=== PATIENT | female | born 2005 | race Caucasian/White ===

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

== ENCOUNTER 2024-03-28 10:48 | Outpatient (CLI) | payer MEDICAID, SELFPAY ==
[2024-03-28 11:40] LABS: Hematocrit 33.1 % (37.0-47.0); Hemoglobin 10.9 g/dL (12.0-15.0); Mean Corpuscular HGB Conc 32.9 g/dl (32-36); Mean Corpuscular Hemoglobin 30.5 pg (26-34); Mean Corpuscular Volume 92.7 fl (80-100); Mean Platelet Volume 10.6 fl (7.4-10.4); Platelet Count Result 267 k/mm3 (150-375); Red Blood Count 3.57 M/mm3 (4.2-5.4); Red Cell Distribution Width 12.2 % (11.5-14.5); White Blood Count 9.9 K/mm3 (4.5-10.0)
--- OUTSIDE RECORDS SUMMARY | 2024-03-28 11:55 | XMS_ITS | Clinical Summary ---
Author Organization [facility] Address [address] [place] [address] Care Team Providers Care Patch Press Operator Name Role Phone Xavier Gerber MD Primary Care Provider [phone] Allergies No known active allergies Active Problems Problem Noted Date Diagnosed Date Amblyopia of right eye 01/07/2021 Immunizations Name Administration Dates Next Due Influenza, Quadrivalent, Spl it, Preservative Free, Intramuscular 01/07/2021 Family History Medical History Relation Name Comments ADD / ADHD Brother Depression Brother Seizures Mother Stroke Mother Relation Name Status Comments Brother hit and run Mother Social History Tobacco Use Types Packs/Day Years Used Date Smoking Tobacco: Unknown Personal Safety Answer Date Recorded Have you ever been in or are you currently in a harmful physical or emotional relationship or is someone making you feel afraid or unsafe? Denies 04/05/2023 Comments Unknown Sex and Gender Information Value Date Recorded Sex Assigned at Not on file Legal Sex Female 6:44 AM INSTRUMENTATION INSTRUCTOR Gender Identity Not on file Sexual Orientation Not on file Obstetrics History Growth Chart Information Age Height Weight Axxhef-rtg-[id number] th Percentile BMI Percentile Head Circum Head Circum Percentile Date 17 years 152.4 cm (5') 54.4 kg (120 lb) 71.29%* 2023 15 years 155 cm (5' 1.02 ) 48.2 kg (106 lb 4.2 oz) 43.33%* 2020 15 years 149.9 cm (4' 11 ) 47.3 kg (104 lb 4.4 oz) 56.99%* 2020 * [facility] (Girls, 2-20 Years) Last Filed Vital Signs Vital Sign Reading Time Taken Comments Blood Pressure 115/89 04/05/2023 8:01 PM INSTRUMENTATION INSTRUCTOR Pulse 108 04/05/2023 8:01 PM INSTRUMENTATION INSTRUCTOR Temperature 36.9 ??C (98.4 ??F) 04/05/2023 4:02 PM CS T Respiratory Rate 18 04/05/2023 8:01 PM INSTRUMENTATION INSTRUCTOR Oxygen Saturation 100% 04/05/2023 8:01 PM INSTRUMENTATION INSTRUCTOR Inhaled Oxygen Concentration - - Weight 54.4 kg (120 lb) 04/05/2023 3:59 PM INSTRUMENTATION INSTRUCTOR Height 152.4 cm (5') 04/05/2023 3:59 PM INSTRUMENTATION INSTRUCTOR Body Mass Index 23.44 04/05/2023 3:59 PM INSTRUMENTATION INSTRUCTOR Body Mass Index Percentile 71.29% 04/05/2023 3:5 9 PM INSTRUMENTATION INSTRUCTOR Growth Chart: CDC (Girls, 2- 20 Years) Plan of Treatment Health Maintenance Due Date Last Done Comments Depression Screening 2004 Hepatitis C Screening 2004 Meningococcal B Vaccine (2 of 2 - Risk Bexsero 2-dose series) 03/12/2022 02/12/2022 Regular Well Visit/Exam 18-64 2022 Covid-19 Vaccine ( season) 2023 12/10/2020, 10/31/2020 Influenza Vaccine (#1) 2023 , 01/07/2021, 05/03/2020, Additional history exists DTaP/Tdap/Td Vaccine (6 - Td or Tdap) 10/23/2026 10/23/2016, 10/23/2010, 11/27/2009, Additional history exists Pneumococcal vaccine <65 Aged Out 006, 09/05/2005, 03/31/2005 No longer eligible based on patient's age to complete this topic Varicella Vaccines Completed 10/23/2010, 11/27/2009 HPV Vaccines Completed 10/14/2017, 10/23/2016 Meningococcal Vaccine Completed 02/12/2022, [id number] [place] [id number] [place] [address] [facility] * Guarantor: JONATHON LLAMAS Account Type Relation to Patient Date of Phone Billing Address Personal/Family [address] Care Teams Patch Press Operator Relationship Specialty Start Date End Date Xavier Gerber MD PCP - General Pediatrics 02/18/21
--- OUTSIDE RECORDS SUMMARY | 2024-03-28 11:55 | XMS_ITS ---
Author Organization [facility] Address [address] [place] [address] Care Team Providers Care Test Lead Application Testing Name Role Phone Blanca Boone Primary Care Provider REASON FOR VISIT 3 month f/u Social History Sex Assigned At : Social History Observation Description Sex Assigned At Female Encounters Encounter Location Date Provider Diagnosis [address] [address] 02/03/2023 Blanca Boone Plan Of Treatment No Information Progress Notes * Kelly COLLINSDOB:[birth year] (18 yo F)Acc No.[id number]:02/03/2023 UNLOCKED PROGRESS NOTE Patient:?Kelly COLLINS Provider:?Blanca Boone MSN, RESEARCH SPECIALIST-BC, PM HNP-BC :2005???Age:17 Y???Sex:Female D ate:02/03/2023 Address:[address] [place] [phone] Subjective: * Chief Complaints: * ???1. 3 month f/u. * Medical History:? Objective: * Vitals:? Assessment: Plan: * Treatment: * Recommended Wellness and Pre vention Guidelines: * ?Status ?Alert ?Last Done ?Next Due ?Action Taken ?NONCOMPLIANT ?HIV screening ?- ?02/03/2023 ?- * * Electronic signature of TAURUS Herr, [id number] on 03/28/2024 at 10:14 AM ORDER CONTROL CLERK BLOOD BANK Sign off status: Pending * Provider:?Blanca Boone, MSN , RESEARCH SPECIALIST-BC, PMHNP-BC Date:?02/03/2023 Generated for Ross ramos/Sajan/eTneilsmitting on:?03/28/2024 10:14 AM ORDER CONTROL CLERK BLOOD BANK
--- OUTSIDE RECORDS SUMMARY | 2024-03-28 11:55 | XMS_ITS | Referral Summary ---
Author Organization [facility] Address [address] [place] [address] Care Team Providers Care Hairspring Assembler Name Role Phone Xavier Gerber MD Primary Care Provider [phone] Allergies No known active allergies Active Problems Problem Noted Date Diagnosed Date Amblyopia of right eye 01/07/2021 Immunizations Name Administration Dates Next Due Influenza, Quadrivalent, Spl it, Preservative Free, Intramuscular 01/07/2021 Social History Tobacco Use Types Packs/Day Years [...] on file Legal Sex Female 6:44 AM IMMIGRATION MANAGER Gender Identity Not on file Sexual Orientation Not on file Last Filed Vital Signs Vital Sign Reading Time Taken Comments Blood Pressure 115/89 04/05/2023 8:01 PM IMMIGRATION MANAGER Pulse 108 04/05/2023 8:01 PM IMMIGRATION MANAGER Temperature 36.9 ??C (98.4 ??F) 04/05/2023 4:02 PM CS T Respiratory Rate 18 04/05/2023 8:01 PM IMMIGRATION MANAGER Oxygen Saturation 100% 04/05/2023 8:01 PM IMMIGRATION MANAGER Inhaled Oxygen Concentration - - Weight 54.4 kg (120 lb) 04/05/2023 3:59 PM IMMIGRATION MANAGER Height 152.4 cm (5') 04/05/2023 3:59 PM IMMIGRATION MANAGER Body Mass Index 23.44 04/05/2023 3:59 PM IMMIGRATION MANAGER Body Mass Index Percentile 71.29% 04/05/2023 3:5 9 PM IMMIGRATION MANAGER Growth Chart: CDC (Girls, 2- 20 Years) Plan of Treatment Not on file Insurance [facility] * Guarantor: JONATHON LLAMAS Account Type Relation to Patient Date of Phone Billing Address Personal/Family [place] [id number] [place] [address] Care Teams Hairspring Assembler Relationship Specialty Start Date End Date Xavier Gerber MD PCP - General Pediatrics 02/18/21
[2024-03-28 12:36] LABS: HIV 1/2 Ab P24 Ag Result Negative (Negative); Rapid Plasma Reagin Non-Reactive (NonReactive)
[2024-03-28 12:39] LABS: Hepatitis B Surface Antigen Negative (Negative)
[2024-03-30 04:13] LABS: CMV IgG Antibody <0.60 U/mL; Varicella IgG Antibody 1.41 S/CO
== END 2024-03-28 10:49 | disposition home or self-care (01) ==
LOC: ANHLAB 10:50
PROVIDERS: Visit Provider Student in an Organized Health Care Education/Training Program
DX: N91.2 Amenorrhea, unspecified (principal)
CPT/HCPCS: 36415; 84702; 85027; 86592; 86644; 86703; 86747; 86762; 86787; 86850; 86900; 86901; 87086; 87340; G0432

== ENCOUNTER 2024-04-11 14:27 | Outpatient (CLI) | payer MEDICAID, SELFPAY ==
--- NOTE | ~2024-04-11 | US_ITS ---
EXAMINATION: US OB <= 14 wk fetus add gest, US OB <= 14 weeks fetus DATE: 06/13/16 13:35:00 INDICATION: Encounter for supervision of normal joint during first trimester. TECHNIQUE: Real-time pelvic ultrasound utilizing transabdominal probe was performed. The interpretin g radiologist was not present for the study. COMPARISON: None. FINDINGS: The uterus measures 9.9 x 9.6 x 9.4 cm. Intrauterine gestational single intrauterine chorionic sac co ntaining 2 living fetuses. A partially visualized thin linear echogenic membrane is seen in places be tween the 2 fetuses on the provided images which be consistent with a monochorionic diamniotic pregna ncy. The crown rump length for fetus A in the sac positioned close to the cervix measures 5.5 cm, which co rrelates with an estimated gestational age of 12 weeks and 1 days. heart motion is identified m easuring 159 beats per minute (bpm) by M-mode Doppler. The crown rump length for fetus B in the sac positioned further from the cervix measures 5.8 cm, whic h correlates with an estimated gestational age of 12 weeks and 2 days. heart motion is identifi ed measuring 170 beats per minute (bpm) by M-mode Doppler. The right ovary is not visualized. The left ovary measures 2.8 x 1.8 x 1.6 cm. Vascular flow identifi ed in the left ovary on color Doppler. There is no free fluid in the pelvis. IMPRESSION: 1. Monochorionic twin with 2 living fetuses with thin membrane seen in places favoring ade mniotic . 2. Gestational age by ultrasound of 12 weeks 2 day(s) +/- 1 week and 1 day(s) with ultrasound estima abad date of delivery ([facility]AFAR) of 10/22/2024. Reviewed, dictated and finalized at location A. ISIONING ANALYST IMPRESSION: 1. Monochorionic twin with 2 living fetuses with thin membrane seen in places favoring diamniotic . 2. Gestational age by ultrasound of 12 weeks 2 day(s) +/- 1 week and 1 day(s) with ultrasound estimated date of delivery ([facility]AFAR) of 10/22/2024.
--- OUTSIDE RECORDS SUMMARY | 2024-04-11 13:11 | XMS_ITS ---
Author Organization [facility] Address [address] [place] [address] Care Team Providers Care Tightening Machine Operator Name Role Phone Blanca Boone Primary Care Provider REASON FOR VISIT 3 month f/u Social History Sex Assigned At : Social History Observation Description Sex Assigned At Female Encounters Encounter Location Date Provider Diagnosis [address] [address] 02/03/2023 Blanca Boone Plan Of Treatment No Information Progress Notes * Kelly COLLINSDOB:[birth year] (18 yo F)Acc No.[id number]:02/03/2023 UNLOCKED PROGRESS NOTE Patient: Kelly FU Provider: Marcia Boone, MSN, NEWSAGENT-BC, PMHNP-BC :2005 A ge:17 Y S ex:Female Date:02/03/2023 Address:[address] [place] [phone] Subjective: * Chief Complaints: * 1 . 3 month f/u. * Medical History: Objective: * Vitals: Assessment: Plan: * Treatment: * Recommended Wellness and Pre vention Guidelines: * S tatus A lert L ast Done N ext Due A ction Taken N ONCOMPLIANT H IV screening - 1 04/06/2022 - * * Electronic signature of TAURUS Herr, [id number] on 04/11/2024 at 01:11 PM CLINICAL SOCIOLOGIST Sign off status: Pending * Provider: BRYAN Fernandez, NEWSAGENT-BC, PMHNP-BC Date: 1 04/06/2022 Generated for Ross ramos/Sajan/Micheleitting on: 0 04/11/2024 01:11 PM CLINICAL SOCIOLOGIST
--- OUTSIDE RECORDS SUMMARY | 2024-04-11 13:11 | XMS_ITS | Clinical Summary ---
Author Organization [facility] Address [address] [place] [phone] Care Team Providers Care Crown Pouncer Name Role Phone Xavier Gerber MD Primary Care Provider [phone] Allergies No known active allergies Active Problems [...] on file Legal Sex Female 6:44 AM AUTOCAD ELECTRICAL DESIGNER Gender Identity Not on file Sexual Orientation Not on file Obstetrics History Growth Chart Information Age Height Weight Srkjpt-vrg-aglq th Percentile BMI Percentile Head Circum Head Circum Percentile Date 17 years 152.4 cm (5') 54.4 kg (120 lb) 71.29%* 2023 15 years 155 cm (5' 1.02 ) 48.2 kg (106 lb 4.2 oz) 43.33%* 2020 15 years 149.9 cm (4' 11 ) 47.3 kg (104 lb 4.4 oz) 56.99%* 2020 * CDC (Girls, 2-20 Years) Last Filed Vital Signs Vital Sign Reading Time Taken Comments Blood Pressure 115/89 04/05/2023 8:01 PM AUTOCAD ELECTRICAL DESIGNER Pulse 108 04/05/2023 8:01 PM AUTOCAD ELECTRICAL DESIGNER Temperature 36.9 C (98.4 F) 04/05/2023 4:02 PM AUTOCAD ELECTRICAL DESIGNER Respiratory Rate 18 04/05/2023 8:01 PM AUTOCAD ELECTRICAL DESIGNER Oxygen Saturation 100% 04/05/2023 8:01 PM AUTOCAD ELECTRICAL DESIGNER Inhaled Oxygen Concentration - - Weight 54.4 kg (120 lb) 04/05/2023 3:59 PM AUTOCAD ELECTRICAL DESIGNER Height 152.4 cm (5') 04/05/2023 3:59 PM AUTOCAD ELECTRICAL DESIGNER Body Mass Index 23.44 04/05/2023 3:59 PM AUTOCAD ELECTRICAL DESIGNER Body Mass Index Percentile 71.29% 04/05/2023 3:5 9 PM AUTOCAD ELECTRICAL DESIGNER Growth Chart: CDC (Girls, 2- 20 Years) [...] 10/23/2016 Meningococcal Vaccine Completed 02/12/2022, 017 Insurance [facility] * Guarantor: JONATHON LLAMAS Account Type Relation to Patient Date of Phone Billing Address Personal/Family [address] [place], [place] [id number] [place] [address] Care Teams Crown Pouncer Relationship Specialty Start Date End Date Xavier Gerber MD PCP - General Pediatrics 02/18/21
--- OUTSIDE RECORDS SUMMARY | 2024-04-11 13:11 | XMS_ITS ---
Author Organization [facility] Address [address] [place] [address] Care Team Providers Care Veterinary Technologist Name Role Phone Blanca Boone Primary Care Provider Allergies No Known Allergies REASON FOR VISIT in office Psych f/u after ER visist Medications Medication SIG (Take, Route, Fr equency, Duration) Notes Start Date End Date Status RisperDAL 0.25 MG 1 tablet Orally in a m for 30 days Active Lexapro 10 MG 1 tablet Orally Once a day for 30 days Active RisperDAL 0.5 MG 1 tablet Orally Once a day for 30 days Active hydrOXYzine HCl 25 MG 1 tablet Orally th ree times daily as needed for anxiety for 30 days Active Social History Sex Assigned At : Social History Observation Description Sex Assigned At Female Vital Signs Weight 114.4 lbs 11/04/2022 Height 60.5 in 11/04/2022 BMI 21.97 kg/m2 11/04/2022 Blood pressure systolic 110 mm Hg 11/05/19 23 Blood pressure diastolic 68 mm Hg 023 Heart Rate 90 /min 11/04/2022 Oximetry 97 % 11/04/2022 Respiratory Rate 16 /min 11/04/2022 BMI Percentile 58.81 % 11/04/2022 Encounters Encounter Location Date Provider Diagnosis [address] [place] [address] 11/04/2022 Blanca Boone PTSD (post-traumatic stress disorder) F43.10 and Bipolar disorder F31.9 Assessments Encounter Date Diagnosis (ICD Code) Assessment Notes Treatment Notes Treatment Clinical Notes Section Notes 11/04/2022 PTSD (post-traumatic stress disorder) (ICD-10 - F43.10) 11/04/2022 Bipolar disorder (ICD-10 - F31.9) with psychotic features Plan Of Treatment Medication Medication Name Sig Start Date Stop Date Notes RisperDAL 0.25 MG 1 tablet Orally in am for 30 days Lexapro 10 MG 1 tablet Orally Once a day for 30 days RisperDAL 0.5 MG 1 tablet Orally Once a day for 30 days hydrOXYzine HCl 25 MG 1 tablet Orally th ree times daily as needed for anxiety for 30 days Next Appt Details Follow Up: 3 Months, Reason: Progress Notes * Kelly COLLINSDOB:[birth year] (16 yo F)Acc No.[id number]:11/04/2022 Patient: Kelly Muñoz Provider: Marcia Boone APRN :2005 A ge:16 Y S ex:Female Date:11/04/2022 Address:[address] [place], [place] [id number] Pcp:Sherman Avila Check In:01:02 PM CARRIAGE FEEDER Subjective: * Chief Complaints: * i n office Psych f/u after ER visist * HPI: I nterim History: Emergency room visit N o. Was hospitalized N o. D epression Screening: PHQ-9 L ittle interest or pleasure in doing things?Not at all F eeling down, depressed, or hopeless S everal days T rouble falling or staying asleep, or sleeping too much S everal days F eeling tired or having little energy N ot at all P oor appetite or overeating N ot at all F eeling bad about yourself or that you are a failure, or have let yourself or your family down N ot at all T rouble concentrating on things, such as reading the newspaper or watching television N ot at all M oving or speaking so slowly that other people could have noticed; or the opposite, being so fidgety or restless that you have been moving around a lot more than usual N ot at all T houghts that you would be better off or of hurting yourself in some way N ot at all T otal Score 2 I nterpretation M inimal Depression Intervention D epression Screening Findings P ositive F ollow-Up for Depression N o Referral necessary, patient involved in behavioral health treatment . D epression Screening PHQ2 2015: PHQ-2 (2015 Edition) L ittle interest or pleasure in doing things??Not at all F eeling down, depressed, or hopeless? S everal days T otal Score 1 Kelly presents in the office. She spent time at [facility] last summer into the winter. She is now on post residential phase through [employer]. And she is working on her GED. The medication regimen has been helping. She denies SI/HI.denies all hallucinations. appetite is good. sleep is good. She is sad 0/10 (10 being most(, anxious 3/10, angry 0/10, and happy 8/10. She reports mood swings 2/10. She is happy with this medication regimen. She is in therapy with Derek. 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 D epression Screening: PHQ-9 L ittle interest or pleasure in doing things?Not at all F eeling down, depressed, or hopeless S everal days T rouble falling or staying asleep, or sleeping too much S everal days F eeling tired or having little energy N ot at all P oor appetite or overeating N ot at all F eeling bad about yourself or that you are a failure, or have let yourself or your family down N ot at all T rouble concentrating on things, such as reading the newspaper or watching television N ot at all M oving or speaking so slowly that other people could have noticed; or the opposite, being so fidgety or restless that you have been moving around a lot more than usual N ot at all T houghts that you would be better off or of hurting yourself in some way N ot at all T otal Score 2 I nterpretation M inimal Depression Intervention D epression Screening Findings P ositive F ollow-Up for Depression N o Referral necessary, patient involved in behavioral health treatment . G AD-7 Screenin. Feeling nervous, anxious, or on edge : , Not at all-0.? 2. Not being able to stop or control worrying , Not at all-0. 3. Worrying too much about different things , Not at all-0. 4. Trouble sleeping/relaxing , Not at all-0. 5. Being so restless that it is hard to sit still , Not at all-0. 6. Becoming easily annoyed or irritable , Not at all-0.? 7. Feeling afraid, as if something awful might happen , Not at all-0. CANDY-7 Score T otal score 0 : M ood Disorder Questionnaire: Administration Y ou felt so good or so hyper Y es . Y ou were irritable Y es . Y ou felt more self-confident than usual N o . Y ou got less sleep than usual but did not miss it Y es . Y ou were more talkative or spoke faster Y es . Y our thoughts raced or you could not slow thoughts down Y es . Y ou were easily distracted, had trouble concentrating Y es . Y ou had more energy than usual Y es . Y ou were more active or doing many things than usual Y es . Y ou were more social than usual Y es . Y ou were more interested in sex than usual?Yes . Y ou did things that were risky, excessive or foolish Y es . S pending money got you or your family in trouble Y es . I f yes to more than one above, have several happened at the same period of time? N o . H ow much of a problem did thse cause you??Moderate problem . H ave any blood relatives had bioplar disorder?Yes . H as a healthcare provider said you have bipolar disorder? N o . D ate of Administration 0 07/01/2022 . * ROS: P sych ROS: Constitutional D enies, A ll systems negative unless indicated otherwise., Denies past suicide attempt.. E yes D enies. E ars/Nose/Mouth/Throat?Denies. R espiratory D enies, D enies problems., Denies asthma or COPD.. A llergic/Immunologic D enies. C ardiovascular D enies, D enies problems., Denies blood relative experiencing sudden at young age. G I D enies, D enies problems., Denies liver problems.. G U D enies, D enies renal problems.. M usculoskeletal D enies, Denies tics, tremors, or abnormal movements., Denies problems.. N eurological D enies,?Denies concern, Denies history of seizures.. I ntegumentary D enies, D enies rashes or pruritis.. E ndocrine D enies, D enies concern, Denies DM or thyroid dysfunction..?Hematological/Lymphatic D enies, D enies bleeding or bruising., Denies problems.. ? P sychiatric: Admits a nger. A dmits m ood swings. T houghts of self harm D enies. D enies H omicidal thoughts. H yperactivity D enies. I nattention D enies. B ehavior concerns A dmits. D isruptive behavior A dmits. Obsessive behavior D enies. C ompulsive behavior D enies. P aranoia D enies.?Difficulty concentrating A dmits. s leeping more than usual D enies. S ubstance use D enies, D enies use. A dmits A nxiety. D enies A uditory/visual hallucinations. D enies D elusions. A dmits D epressed mood. D enies D ifficulty sleeping. D enies E ating disorder. D enies L oss of appetite. D enies M ental or Physical abuse. D enies N ervous breakdown, d enies. D enies P sychiatric condition, d enies. D enies S tressors. D enies S ubstance abuse. D enies?Suicidal thoughts. i mprovements noted. * Medical History: * Surgical History: D enies Past Surgical History * Hospitalization/Major Diagno stic Procedure: [facility] * Family History: F ather: unknown. M other: . S iblings: alive, 1 brother from hit n run accident. 1 brother(s) , 1 sister(s) - healthy. . * Social History: P rimary Social History: L iving Arrangement L iving Arrangement: D ependent Living M iscellaneous: M ethod of learning P referred method of learning: D emonstration * Medications: T akinghydrOXYzine HCl 25 MG Tablet 1 tablet Orally three times daily as needed for anxietyRisperDAL 0.5 MG Tablet 1 tablet Orally Once a dayLexapro 10 MG Tablet 1 tablet Orally Once a dayRisperDAL 0.25 MG Tablet 1 tablet Orally in amMedication List reviewed and reconciled with the patientTaking hydrOXYzine HCl 25 MG Tablet 1 tablet Orally three times daily as needed for anxietyTaking RisperDAL 0.5 MG Tablet 1 tablet Orally Once a dayTaking Lexapro 10 MG Tablet 1 tablet Orally Once a dayTaking RisperDAL 0.25 MG Tablet 1 tablet Orally in amMedication List reviewed and reconciled with the patient * Allergies: N .K.D.A.no[Allergies Verified] Objective: * Vitals: I nitials: sw, Wt: 114.4, Ht: 60.5, BMI: 21.97, BP: 110/68, HR:90, Oxygen sat %: 97, RR:16, BMI %: 58.81, LMP: n/a, Pain scale: 0, Ht-cm: 153.67, Wt-k.89, Wt %: 30.04, Ht %: 7.26. * Examination: P sychiatry (Child): SEPARATION FROM PARENT DURING INTERVIEW PROCESS: e asy.? RELATEDNESS: w ell-related. ATTITUDE: c ooperative. ORIENTATION: p erson, place, time. SPEECH/LANGUAGE: s pontaneous , fluent. MOOD: e uthymic. THOUGHT PROCESS: w ithout evidence of formal thought disorder. THOUGHT CONTENT: u nremarkable. PERCEPTUAL DISORDERS: n o perceptual disorder noted. PSYCHOMOTOR ACTIVITY: g oal directed , normal gait. HALLUCINATIONS: y es. DELUSIONS: n o. CURRENT SUICIDAL POTENTIAL: d enies. CURRENT HOMICIDAL POTENTIAL: d enies. INSIGHT LEVEL: m oderate. JUDGEMENT LEVEL: m oderate. KNOWLEDGE - INTELLECTUAL FUNCTION: m oderate. IMMED RECALL - INTELLECTUAL FUNCTION: m oderate. Assessment: * Assessment: 1. P TSD (post-traumatic stress disorder) - F43.10 2 . B ipolar disorder - F31.9, with psychotic features Plan: * Treatment: * Procedure Codes: * Follow Up: 3 Months * * Sign off status: Completed true * Provider: Marcia Boone APRN Date: 0 11/04/2022 Generated for Ross ramos/Sajan/Micheleitting on: 0 04/11/2024 01:10 PM CARRIAGE FEEDER History and Physical Notes * HPI (History of Present Illness) Category Sub-Category Detail Notes Category Not es Interim History Was hospitalized No Emergency room visit No Depression Screening PHQ9 PHQ-2 (2015 Edition) Little interest or pleasure in doing things?: Not at all Kelly presents in the office. She spent time at [employer] last summer into the winter. She is now on post residential phase through [employer]. And she is working on her GED. The medication regimen has been helping. She denies SI/HI.denies all hallucinations. appetite is good. sleep is good. She is sad 0/10 (10 being most(, anxious 3/10, angry 0/10, and happy 8/10. She reports mood swings 2/10. She is happy with this medication regimen. She is in therapy with Derek. 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 Feeling down, depressed, or hopeless?: S everal days Total Score: 1 Depression Screening PHQ-9 Little inte rest or pleasure in doing things: Not at all Feeling down, depressed, or hopeless: Se veral days Trouble falling or staying asleep, or sl eeping too much: Several days Feeling tired or having little energy: N ot at all Poor appetite or overeating: Not at all Feeling bad about yourself o r that you are a failure, or have let yourself or your family down: Not at all Trouble concentrating on thi ngs, such as reading the newspaper or watching television: Not at all Moving or speaking so slowly that other people could have noticed; or the opposite, being so fidgety or restless that you have been moving around a lot more than usual: Not at all Thoughts that you would be b julian off or of hurting yourself in some way: Not at all Total Score: 2 Interpretation: Minimal Depression Intervention Depression Screening Findings: P ositive Follow-Up for Depression: No Referral necessary, patient involved in behavioral health treatment . CANDY-7 Screening 1. Feeling nervous, anxious, or on edg e : , Not at all-0 2. Not being able to stop or control wor rying , Not at all-0 3. Worrying too much about different thi ngs , Not at all-0 4. Trouble sleeping/relaxing , Not at al l-0 5. Being so restless that it is hard to sit still , Not at all-0 6. Becoming easily annoyed or irritable , Not at all-0 7. Feeling afraid, as if something awful might happen , Not at all-0 CANDY-7 Score Total score: 0 : Mood Disorder Questionnaire Administration You felt so goo d or so hyper: Yes . You were irritable: Yes . You felt more self-confident than usual: No . You got less sleep than usual but did no t miss it: Yes . You were more talkative or spoke faster: Yes . Your thoughts raced or you could not slo w thoughts down: Yes . You were easily distracted, had trouble concentrating: Yes . You had more energy than usual: Yes . You were more active or doing many thing s than usual: Yes . You were more social than usual: Yes . You were more interested in sex than usu al: Yes . You did things that were risky, excessiv e or foolish: Yes . Spending money got you or your family in trouble: Yes . If yes to more than one abov e, have several happened at the same period of time?: No . How much of a problem did thse cause you ?: Moderate problem . Have any blood relatives had bioplar dis order: Yes . Has a healthcare provider said you have bipolar disorder?: No . Date of Administration: 07/01/2022 . Examination Category Sub-Category Detail Notes Category Not es Psychiatry (Child) [facility] PROCESS: easy RELATEDNESS: well-related ATTITUDE: cooperative SPEECH/LANGUAGE: spontaneous , fluent MOOD: euthymic THOUGHT PROCESS: without evidence of formal thought disorder THOUGHT CONTENT: unremarkable PERCEPTUAL DISORDERS: no perceptual diso rder noted PSYCHOMOTOR ACTIVITY: goal directed , no rmal gait HALLUCINATIONS: yes DELUSIONS: no KNOWLEDGE - INTELLECTUAL FUNCTION: moder ate IMMED RECALL - INTELLECTUAL FUNCTION: mo derate ORIENTATION: person, place, time CURRENT SUICIDAL POTENTIAL: denies CURRENT HOMICIDAL POTENTIAL: denies JUDGEMENT LEVEL: moderate INSIGHT LEVEL: moderate
--- OUTSIDE RECORDS SUMMARY | 2024-04-11 13:11 | XMS_ITS | Referral Summary ---
Author Organization [facility] Address [address] [place] [address] Care Team Providers Care Industrial Retrofit Designer Name Role Phone Xavier Gerber MD Primary Care Provider [phone] Allergies No known active allergies Active Problems [...] on file Legal Sex Female 6:44 AM PREVENTION RN Gender Identity Not on file Sexual Orientation Not on file Last Filed Vital Signs Vital Sign Reading Time Taken Comments Blood Pressure 115/89 04/05/2023 8:01 PM PREVENTION RN Pulse 108 04/05/2023 8:01 PM PREVENTION RN Temperature 36.9 C (98.4 F) 04/05/2023 4:02 PM PREVENTION RN Respiratory Rate 18 04/05/2023 8:01 PM PREVENTION RN Oxygen Saturation 100% 04/05/2023 8:01 PM PREVENTION RN Inhaled Oxygen Concentration - - Weight 54.4 kg (120 lb) 04/05/2023 3:59 PM PREVENTION RN Height 152.4 cm (5') 04/05/2023 3:59 PM PREVENTION RN Body Mass Index 23.44 04/05/2023 3:59 PM PREVENTION RN Body Mass Index Percentile 71.29% 04/05/2023 3:5 9 PM PREVENTION RN Growth Chart: CDC (Girls, 2- 20 Years) Plan of Treatment Not on file Insurance [place] [address] [facility] * Guarantor: JONATHON LLAMAS Account Type Relation to Patient Date of Phone Billing Address Personal/Family [address] Care Teams Industrial Retrofit Designer Relationship Specialty Start Date End Date Xavier Gerber MD PCP - General Pediatrics 02/18/21
--- OUTSIDE RECORDS SUMMARY | 2024-04-11 13:11 | XMS_ITS ---
Author Organization [facility] Address [address] [place] [address] Care Team Providers Care Certified Low Vision Therapist Name Role Phone Blanca Boone Primary Care Provider [phone] REASON FOR VISIT Question about Medications Social History Sex Assigned At : Social History Observation Description Sex Assigned At Female Encounters Encounter Location Date Provider Diagnosis [facility] [address] [place] [address] 01/09/2023 Blanca Boone Plan Of Treatment No Information Progress Notes * Kelly COLLINSDOB:[birth year] (17 yo F)Acc No.[id number]:01/09/2023 Patient: Kelly FU :2005 A ge:17 Y S ex:Female Address:[address] [place] [id number] * true * Date: Generated for Aleni ng/Faxing/eTransmitting on: 0 04/11/2024 01:11 PM THIRD STEEL POURER
--- OUTSIDE RECORDS SUMMARY | 2024-04-11 13:11 | XMS_ITS | Patient Health Record ---
Author Organization Replaced by [facility] Address [address] [place] [address] Care Team Providers Care Newspaper Carriers Supervisor Name Role Phone Blanca Boone Primary Care Provider Allergies No Known Allergies Reason For Referral No Information Medications Medication SIG (Take, Route, Fr equency, [...] History Observation Description Sex Assigned At Female Problems Problem Type SNOMED Code ICD Code Onset Dates Problem Status W/U Status Risk Notes Problem Posttraumatic stress disorder (19736660) PTSD (post-traum atic stress disorder) (F43.10) Active confirmed Problem Bipolar disorder (35445499) Bipolar disorder (F31.9) Active confirmed with psychotic features Plan Of Treatment No Information Insurance Providers Payer Name Payer Address Payer Phone Subscriber Number Group Number Insured Name Patient Relationship to Insured Coverage Start Date Coverage End Date [employer] [address] [place] [address] [id number] Kelly Mensah Self - patient is the insured 3 [employer] [address] [place] [phone] [id number] Kelly Mensah Self - patient is the insured 3 Medical (General) History Surgical History Surgery Date(Month/Year) Hospitalization History Reason Date(Month/Year) John Xie
--- OUTSIDE RECORDS SUMMARY | 2024-04-11 14:43 | XMS_ITS | Clinical Summary ---
Author Organization [facility] Address [address] [place] [address] Care Team Providers Care Faculty Instructor Name Role Phone Xavier Gerber MD Primary Care Provider [phone] Allergies No known active allergies Active Problems [...] on file Legal Sex Female 6:44 AM FUEL TESTING TECHNICIAN Gender Identity Not on file Sexual Orientation Not on file Obstetrics History Growth Chart Information Age Height Weight Iigigi-auc-pmcm th Percentile BMI Percentile Head Circum Head [...] Comments Blood Pressure 115/89 04/05/2023 8:01 PM FUEL TESTING TECHNICIAN Pulse 108 04/05/2023 8:01 PM FUEL TESTING TECHNICIAN Temperature 36.9 C (98.4 F) 04/05/2023 4:02 PM FUEL TESTING TECHNICIAN Respiratory Rate 18 04/05/2023 8:01 PM FUEL TESTING TECHNICIAN Oxygen Saturation 100% 04/05/2023 8:01 PM FUEL TESTING TECHNICIAN Inhaled Oxygen Concentration - - Weight 54.4 kg (120 lb) 04/05/2023 3:59 PM FUEL TESTING TECHNICIAN Height 152.4 cm (5') 04/05/2023 3:59 PM FUEL TESTING TECHNICIAN Body Mass Index 23.44 04/05/2023 3:59 PM FUEL TESTING TECHNICIAN Body Mass Index Percentile 71.29% 04/05/2023 3:5 9 PM FUEL TESTING TECHNICIAN Growth Chart: CDC (Girls, 2- 20 Years) [...] 10/23/2026 10/23/2016, 10/23/2010, 11/27/2009, Additional history exists Hepatitis B Screening Completed 10/17/2005 , 09/05/2005, 03/31/2005, Additional history exists Pneumococcal vaccine <65 Aged Out 006, 09/05/2005, 03/31/2005 No longer eligible based on patient's age to complete this topic Varicella Vaccines Completed 10/23/2010, 11/27/2009 HPV Vaccines Completed 10/14/2017, 10/23/2016 Meningococcal Vaccine Completed 02/12/2022, [address] [place] [address] [facility] * Guarantor: JONATHON LLAMAS Account Type Relation to Patient Date of Phone Billing Address Personal/Family [address] Care Teams Faculty Instructor Relationship Specialty Start Date End Date Xavier Gerber MD PCP - General Pediatrics 02/18/21
--- OUTSIDE RECORDS SUMMARY | 2024-04-11 14:43 | XMS_ITS | Referral Summary ---
Author Organization [facility] Address [address] [place] [address] Care Team Providers Care Qm Nurse Name Role Phone Xavier Gerber MD Primary Care Provider [phone] Allergies No known active allergies Active Problems [...] on file Legal Sex Female 6:44 AM SPECIAL EDUCATION TEACHERS Gender Identity Not on file Sexual Orientation Not on file Last Filed Vital Signs Vital Sign Reading Time Taken Comments Blood Pressure 115/89 04/05/2023 8:01 PM SPECIAL EDUCATION TEACHERS Pulse 108 04/05/2023 8:01 PM SPECIAL EDUCATION TEACHERS Temperature 36.9 C (98.4 F) 04/05/2023 4:02 PM SPECIAL EDUCATION TEACHERS Respiratory Rate 18 04/05/2023 8:01 PM SPECIAL EDUCATION TEACHERS Oxygen Saturation 100% 04/05/2023 8:01 PM SPECIAL EDUCATION TEACHERS Inhaled Oxygen Concentration - - Weight 54.4 kg (120 lb) 04/05/2023 3:59 PM SPECIAL EDUCATION TEACHERS Height 152.4 cm (5') 04/05/2023 3:59 PM SPECIAL EDUCATION TEACHERS Body Mass Index 23.44 04/05/2023 3:59 PM SPECIAL EDUCATION TEACHERS Body Mass Index Percentile 71.29% 04/05/2023 3:5 9 PM SPECIAL EDUCATION TEACHERS Growth Chart: CDC (Girls, 2- 20 Years) Plan of Treatment Not on file [place] [address] [place] [address] [facility] * Guarantor: JONATHON LLAMAS Account Type Relation to Patient Date of Phone Billing Address Personal/Family [address] Care Teams Qm Nurse Relationship Specialty Start Date End Date Xavier Gerber MD PCP - General Pediatrics 02/18/21
== END 2024-04-11 14:28 | disposition home or self-care (01) ==
PROVIDERS: Visit Provider Student in an Organized Health Care Education/Training Program
DX: O30.009 Twin pregnancy, unspecified number of placenta and unspecified number of amniotic sacs, unspecified trimester (principal); N91.2 Amenorrhea, unspecified; Z3A.00 Weeks of gestation of pregnancy not specified
CPT/HCPCS: 36415; 76801; 76802; 81220

== ENCOUNTER 2024-11-13 01:25 | Emergency (ER) | payer BC, SELFPAY ==
--- OUTSIDE RECORDS SUMMARY | 2024-10-23 07:30 | XMS_ITS | Encounter Summary ---
Author Organization [facility] Healthcare Address [address] [place] [address] Care Team Providers Care Supervisor Metalizing Name Role Phone Xavier Gerber MD Primary Care Provider [phone] Encounter Details Date Type Department Care Team (Late st Contact Info) Description 10/23/2024 7:30 AM CDT Hospital Encounter [address] [id number] Gladis Hooper MD [address] [facility] [phone] [place] [address] Social History Tobacco Use Types Packs/Day Years Used Date Smoking Tobacco: Unknown Personal Safety Answer Date Recorded Have you ever been in or are you currently in a harmful physical or emotional relationship or is someone making you feel afraid or unsafe? 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
[2024-11-13 01:20] VITALS: BP 117/89; PULSE 96; RESP 18; TEMP 37; O2SAT 98
[2024-11-13 02:20] LABS: Influenza A QL RT-PCR Negative (Negative); Influenza B QL RT-PCR Negative (Negative); RSV RNA, RT-PCR Negative (Negative); SARS-CoV-2 RNA PCR Positive (Negative)
--- NOTE | 2024-11-13 02:41 | ED_ITS ---
HPI - Fever General Chief Complaint: Fever Stated Complaint: SICK CASE, FEVER Time Seen by Provider: 11/13/24 02:25 History of Present Illness HPI Narrative: Patient is a 18-year-old female who presents emergency department this evening with the flu-like symptoms which started yesterday. States that she has been spiking fevers as high as 101, denies any sick contacts at home. Patient states that her mother had COVID approximately 2 weeks ago. Patient is 2 months . Denies any additional symptoms or concerns. Related Data Home Medications ?Medication ?Instructions ?Recorded ?Confirmed ?Last Taken ?Type No Home Medications 10/25/24 10/25/24 U nknown History Allergies Allergy/AdvReac Type Severity Reaction Status Date / Time No Known Allergies Allergy Mild Verified 10/25/24 10:13 Review of Systems Review of Systems: All systems are reviewed and are negative unless stated otherwise in the HPI. [facility] Past Medical History Medical History History of depression History of anxiety History of bipolar disorder History of posttraumatic stress disorder (PTSD) Surgical History Surgical History Delivery by section (09/12/24) twin delivery at [facility] Family History Family History Mother Family history non-contributory Social History Social History Smoking status: Current every day smoker Tobacco type: e-cigarettes/vaping Alcohol intake: never Substance use: never Substance use type: does not use Do You Feel Safe in your Home?: Yes Lack of Transportation: No Lack of Food: Never True Current Housing: I Have Housing Concerned About Future Housing: No Difficulty Paying Gas/Electric Bills: No Difficulty Paying for Meds: No Currently Unemployed: No Education: High School Diploma/GED Difficulty w/ Childcare or Family Care: No Living arrangements: other Additional living arrangements comments: significant other Occupation/Education: unemployed Gender identity (if verbalized by the patient): Female Sexual Orientation (if Verbalized by the Patient): Straight or Heterosexual Spiritual care concerns: No Exam Narrative: General: Alert, awake, afebrile, in no acute distress. HEENT: PERRL, no rhinorrhea, no post nasal drip, oropharynx clear. Neck: Trachea midline, no JVD, no lymphadenopathy. Cardiovascular: Regular rate and rhythm, no murmurs, rubs or gallops, no peripheral edema. Respiratory: Clear to auscultation bilaterally, no tachypnea, no wheezing, no rhonchi, no rubs, no respiratory distress. Abdomen: Soft, nontender, nondistended, no rebound, no guarding, no peritoneal signs. Musculoskeletal: No joint swelling or deformity, normal muscle tone. Skin: No rashes or petechia, no signs of infection. Psychiatric: Alert and oriented, normal behavior and judgment for situation. Neurological: Alert and oriented to person, place, and time. Follows all commands. No focal deficits, speech is clear and fluent. Course Vital Signs Vital signs: Vital Signs Temperature 98.6 F 11/13/24 01:20 Pulse Rate 96 11/13/24 01:20 Respiratory Rate 18 11/13/24 01:20 Blood Pressure 117/89 11/13/24 01:20 Pulse Oximetry 98 11/13/24 01:20 Temperature 98.6 F 11/13/24 01:20 Pulse Rate 96 11/13/24 01:20 Respiratory Rate 18 11/13/24 01:20 Blood Pressure 117/89 11/13/24 01:20 Pulse Oximetry 98 11/13/24 01:20 MDM - Fever MDM Narrative Medical decision making narrative: The patient was evaluated by myself in the emergency department. History is obtained from patient who is an independent historian and physical exam was performed. External medical records were reviewed at this time. Viral swabs were obtained at this time and noted to be positive for COVID. Differential diagnosis considerations include acute viral syndrome, COVID, influenza/RSV. Comorbidities impacting this visit include none p.m. I have evaluated and discussed social determinants of health with the patient that could potentially impact subsequent diagnosis and treatment plans. On repeat assessment of the patient, reevaluation revealed that the patient is doing well and is in no acute distress. Patient symptoms have remained stable since she arrived to our emergency department. Repeat vital signs were all reviewed and noted to be stable. Differential diagnosis and treatment plan were discussed with the patient at bedside. Patient agrees with discussion and after shared medical decision making agrees with discharge. All questions were answered to the patient's satisfaction. Patient will follow up with her PCP in 3-5 days. Patient was provided with strict return precautions and instructed to return to the emergency department if any new or worsening symptoms develop. The patient was discharged in stable condition. Lab Data Labs: Lab Results 11/13/24 Range/Units 01:36 Influenza A (RT-PCR) Negative (Negative) Influenza B (RT-PCR) Negative (Negative) RSV (RT-PCR) Negative (Negative) SARS-CoV-2 RNA (RT-PCR) Positive A (Negative) Discharge Plan Discharge Clinical Impression: COVID Patient Disposition: Home Condition: Improved Instructions: Antibiotic Form, COVID-19 (Coronavirus Disease 2019) (ED) Additional Instructions: Please follow-up with your family doctor within the next 3-5 days. Return to the emergency department if any new or worsening symptoms develop. Use ibuprofen and Tylenol alternating between the 2 for your symptoms. Patient Language: Welsh Prescriptions: No Action No Home Medications Follow-up/Referrals: UNKNOWN,DOCTOR [Primary Care Provider] - 3 Days Zuleika Hanson DO [Physician, Family Practice] - 3 Days Time of Disposition: 02:42
--- OUTSIDE RECORDS SUMMARY | 2024-11-13 02:53 | XMS_ITS | Clinical Summary ---
Author Organization [facility] Address [address] [place] [address] Care Team Providers Care Dough Sheeter Name Role Phone Idalia Wesley DUSTIN-WOLF HUNTER Primary Care Provider + Source Comments [facility],non-owned Affiliates and Associated Physician Practices is amultiple site organization consisting of ambulatory clinics and hospital sitesin [place], [place], [place] and [place]. This disclosure is being madepursuant to the Care Everywhere program and may not contain all information available regarding this patient. Last updated 17.[facility] Allergies No known active allergies Medications * Be aware that medications may not be up to date on this document. Alwaysverify current medications with the patient. ferrous sulfate 325 (65 FE) MG tabletIndicatio ns:Iron Deficiency Take 1 (one) tablet by mouth once daily Reasons: Iron Deficiency Active acetaminophen (Tylenol) 500 MG tablet Take 2 (two) tablets by mouth every 6 hours as needed for Fever or Pain 60 tablet 1 09/14/2024 9:38 AM CDT 5 Active ibuprofen (Motrin) 600 MG tablet Take 1 (one) tablet by mouth every 6 hours as needed for Pain 50 tablet 1 09/14/2024 9:38 AM CDT 5 Active polyethylene glycol 3350 (Miralax) 17 GM/SCOOP powder Mix 17 grams of powder in liquid and drink once daily 238 g 09/14/2024 9:38 AM CDT 5 Active docusate sodium (Colace) 100 MG capsule Take 1 (one) capsule by mouth once daily 50 capsule 1 09/14/2024 9:38 AM CDT Active ferrous sulfate 325 (65 FE) MG tablet Take 1 (one) tablet by mouth once daily 60 tablet 2 09/14/2024 9:38 AM CDT Active oxyCODONE, immediate release, (Roxicodone) 5 MG tabletIndicatio ns:Monochorioni c diamniotic twin in second trimester (HCC) Take 1 (one) tablet by mouth every 6 hours as needed for Pain 12 tablet 09/14/2024 11:50 AM CDT 5 Active Active Problems Patient Care Coordination No te Formatting of this note migh t be different from the original. [employer] form completed. Diapers given. 08/02/2024, 09/21/24 (PP) Problem Noted Date Diagnosed Date Uterine contractions 08/23/2024 Pain 08/18/2024 Posttraumatic stress disorder 08/02/2024 Family history of ovarian cancer 05/26/2024 Overview (08/02/2024): She reports her mother of OvCa in her 40s. We discussed that there are some genetic cancer syndromes and in most high risk cases, ppx salpingectomy, oophorectomy, or mastectomy are considered after child-bearing to discuss risk of cancer. She is unaware of any genetic testing performed on her biological mother. She should consider seeing a GC with interest in cancer genetics to see if any testing is warranted for her. Anemia during in second trimester 05/01 Overview (08/02/2024): She reports she had a low iron at the [facility] office and then was told she was mildly anemic by her primary OB and is on daily iron. Hgb pre-operatively was 9.8. Twin to twin transfusion 05/25/2024 Overview (08/02/2024): S/P Laser ablation at [facility] 05/27 History: Diagnosed with mo-di twins at outside facility. Referred for concern for stage II TTTS on 05/24 with polyhydramnios of A, borderline MICHAEL of B, no bladder of B, normal Dopplers Ultrasound findings 05/26 at [facility]: stage 2 TTTS with fluids of 9.5 and 1.6 and empty bladder of B Laser surgery performed 05/27. Postop visit 06/02 - uncomplicated Seen again on 06/23 given concern for evolving TTTS but with the prior recipient becoming the donor. US today with normal fluids and bladders. The membrane does drape toward fetus 1 (prior recipient) but this does not appear to be TTTS as there is no poly/oligo seen. She denies any leakage since surgery which could be another cause of oligohydramnios in a prior recipient. At this time no additional surgery or intervention is indicated. Twin 2 (prior donor) is growth restricted at the 8%ile (twin 1 at 15%) but this does not meet criteria for sFGR given discordance between the twins is not enough. This is more suggestive of placental, constitutional, or genetic. Her [employer] is still pending from amniocentesis and I will call her with these results. She should continue at least weekly US for Dopplers (UA, DV, and MCA) and testing should be initiated per institutional protocol/shared decision making on FGR and risk of early delivery. She is transferring all her care to the [place]'s team moving forward and she has an US scheduled Thursday with them. I spoke with Dr. Mcmahon about this recommendation. The patient is in agreement with this plan. Delivery is recommend by 36w at the latest. Bipolar disease during 05/25/2024 Overview (08/02/2024): Current regimen: no meds, previously on lexapro and hydroxyzine but stopped with +UPT Counseling: Bipolar disorder a mood disorder involving episodes of depression and sherry, considered to have multifactorial inheritance, with genetic and environmental causes. Relatives of bipolar patients have higher risk of bipolar disorder and other affective psychiatric disorders. The general population risk of bipolar disorder is 1%. and delivery are a risk factor for causing hypomania or sherry. There is a 35% chance of developing a bipolar relapse if untreated. SSRIs are considered first-line medications for the treatment of depression or anxiety in . The risks of SSRI exposure have been explored by multiple studies, but the results from these studies are conflicting and limited by confounders. There is a weak association between SSRIs and defects (with the exception of paroxetine/Paxil and a higher risk of congenital heart defects). The most common complication with maternal SSRI use is respiratory depression at requiring transient pediatric respiratory support. We also reviewed the risk of adaptation syndrome (occurring in 10-30% of exposed babies) which is a cluster of symptoms including irritability, restlessness, tremors, hypoglycemia, hypothermia, sleep disruptions and poor feeding. This syndrome can be easily managed by the pediatricians, and no long-term effects have been demonstrated. Abrupt discontinuation of SSRIs is associated with adverse side effects such as GI distress, dizziness, fatigue, headache, and sleep disturbances. It is generally regarded that the benefits of SSRIs outweigh risks, although the lowest effective dose should be utilized to manage patient symptoms. She feels her mood is currently good, despite her screening EPDS score of 13 and she denies significant depressive or manic symptoms impacting her ability to function. She desires to continue without medication but does desire to restart medication . She is aware that should her mood worsen we would support her restarting her meds in . 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 He unfortunately does not have insurance. CFTR mutation testing is pending from her amniocentesis. Short stature: height 4'9 05/12/2024 Amblyopia of right eye 01/07/2021 Resolved Problems Problem Noted Date Diagnosed Date Resolved Date Depression screen 06/07/2024 09/27/2024 Overview (07/18/2024): 06/07/2024 Kelly Mensah was screened for depression using the [place] Depression Scale (EPDS) at her [facility] initial evaluation on 06/07/2024. Her initial score at baseline was 10. Based off of her score of 10, Kelly does not warrant follow up. Patient will continue to be screened throughout , at intervals no closer than two weeks, for continued surveillance and early identification of depression until delivery. Patient reports mental health history. Diagnoses include depression, anxiety, and bipolar disorder, and PTSD. 06/03/2024-Follow up EPDS score=10. 06/27/2024- Follow up EPDS score=10. 07/18/2024-Follow up EPDS score-10. [facility]: abnormality in 05/30/2024 09/27/2024 Overview (09/06/2024): Images from the original note were not included. [facility] PATIENT--PLEASE CALL [phone] (ex 2) IF TRIAGED OR ADMITTED Care Provider: Dr. Juan Sapp-->STEPHEN to [facility] consultants involved: Nurse Navigator- Renee; MFM-Dr. Sam & Dr. Daniels; Pediatric Cardiology-Dr. Dela Cruz; Neonatology-Dr. Bailey Diagnosis: Monochorionic diamniotic twin gestation complicated by Stage 2 TTTS, s/p laser photocoagulation at [facility] on 05/27 Ultrasound at [facility] on 07/18/2024: Twin B presenting at this time, Biometries of twin A consistent with SGA size, Biometries of twin B consistent with FGR , Concordant estimated weights, Normal amniotic fluid volume for each twin by DVP - membranes appear to be wrapping twin B in some areas, Umbilical artery Doppler studies within normal limits for each twin, MCA Dopplers studies within normal limits for each twin 07/18/2024: Normal echocardiograms for both twins Planned surveillance: Routine OB care at [facility]; Follow-up ultrasound in 1 week for Doppler studies of each twin and testing of twin B (to be performed at [facility]/FETU); No further [facility] follow up Delivery location: [facility] Delivery mode: Per usual obstetric indications Desired Delivery GA: TBD (no later than 34 weeks if FGR of twin B persists) follow up: Per Neonatology- Recommend delivery at [facility]. Neonatology attending will not be expected to be present at delivery. Admission to NICU should be per typical indications based on GA, size, and clinical status. If well, >35w GA and BW >1800g, can room in with mother. Infant will not need to be transferred to [facility]. Transfer to [facility] can be per usual indications Other services to notify prior to delivery: none Special treatments required: head ultrasounds after delivery Anticipated delivery room complications: none Umbilical lines: Not Indicated Both twins should have a head ultrasound by day of life 7 and brain MRI prior to discharge from the nursery/NICU if there are concerns on head US. Recommend developmental assessments in nursery follow up clinic after discharge due to higher risk of neurodevelopmental differences. Home Care Physical Therapist: Autopsy indicated: Genetics note: Carcass Trimmer Concerns: 06/13/2024-Patient with history of anxiety, depression, PTSD and Bipolar- no medications Care plan based on evaluation and is subject to change based on assessment. See Images or Cardiac under Chart Review for US/ ECHO/ MRI reports. Encounters Date Type Department Care Team Description 09/21/2024 12:20 PM CDT - 09/21/2024 11:59 PM CDT Hospital Encounter [facility] MATERNAL/ EVALUATION UNIT [address] [place] [address]. [address] [place] [id number] Blessing Najera APRN-MARZENA Discharge Disposition: Home or Self Care 09/21/2024 Travel 09/20/[address] [address] 09/19/[address] [address] 09/16/2024 Telephone [facility] MATERNAL/ EVALUATION UNIT [address] [place] [address] [address] [place] [address] Lorenza Dickson Appointment 09/15/2024 Telephone [facility] MATERNAL/ EVALUATION UNIT [address] [place], [place] [address] [place] [address] Lorenza Dickson Appointment 09/14/[address] [address] 09/12/2024 10:55 AM CDT Anesthesia Event [facility] [address] [place] [address] Iván Renee MD 09/12/2024 10:30 AM CDT - 09/12/2024 12:32 PM CDT Surgery [facility] [address] [address] Adriano Oquendo MD SECTION (PRIMARY) 09/06/2024 6:11 AM CDT Anesthesia Event [facility] [address] [address] Nicole Begum APRN-ELECTROPLATING LABORER 09/06/2024 - 09/07/2024 Surgery [facility] [address] [address] Adriano Oquendo MD SURGICAL CASE DISCONTINUED PREOP 09/05/2024 3:19 AM CDT - 09/14/2024 12:49 PM CDT Hospital Encounter [facility] 6W MOTHER/BABY [address] [place] [address] Panfilo Brock MD Wendel, Michael, MD Surgery General Discharge Disposition: Home or Self Care 09/05/2024 Travel 08/30/2024 1:06 PM CDT - 08/30/2024 11:59 PM CDT Hospital Encounter [facility] MATERNAL/ EVALUATION UNIT [address] [place] [address] [address] [place] [address] Panfilo Brock MD Buchanan, Christopher Q, MD Discharge Disposition: Home or Self Care 08/30/2024 1:06 PM CDT - 08/30/2024 11:59 PM CDT Hospital Encounter [facility] MATERNAL/ EVALUATION UNIT [address] [place] [address] [address] [place], [place] [id number] Panfilo Brock MD Discharge Disposition: Home or Self Care 08/30/2024 1:06 PM CDT - 08/30/2024 11:59 PM CDT Hospital Encounter [facility] MATERNAL/ EVALUATION UNIT [facility] [address] [place] [address] Panfilo Brock MD Discharge Disposition: Home or Self Care 08/30/2024 12:45 PM CDT - 08/30/2024 1:05 PM CDT Hospital Encounter [facility] MATERNAL/ EVALUATION UNIT [address] [place] [address] Panfilo Brock MD Discharge Disposition: Home or Self Care 08/30/2024 Travel 08/24/2024 Telephone [facility] MATERNAL/ EVALUATION UNIT [facility] [address] [place] [address] Lorenza Dickson Appointment 08/24/2024 Telephone [facility] MATERNAL/ EVALUATION UNIT [facility] [address] [place] [address] Lorenza Dickson Appointment 08/23/2024 3:51 PM CDT - 08/23/2024 7:24 PM CDT Hospital Encounter [facility] [address] [place] [address] Adriano Oquendo MD Discharge Disposition: Home or Self Care 08/23/2024 1:05 PM CDT - 08/23/2024 3:50 PM CDT Hospital Encounter [facility] MATERNAL/ EVALUATION UNIT [facility] [address] [place] [address] Sonia Sam MD Discharge Disposition: Home or Self Care 08/23/2024 1:00 PM CDT - 08/23/2024 1:04 PM CDT Hospital Encounter [facility] MATERNAL/ EVALUATION UNIT [facility] [address] [place] [address] Sonia Sam MD Discharge Disposition: Home or Self Care 08/23/2024 12:30 PM CDT - 08/23/2024 12:59 PM CDT Hospital Encounter [facility] MATERNAL/ EVALUATION UNIT [facility] [address] [place] [address] Sonia Sam MD Discharge Disposition: Home or Self Care 08/23/2024 Travel 08/18/2024 3:30 AM CDT - 08/19/2024 11:25 AM CDT Hospital Encounter [facility] 5E ANTEPARTUM/MOTHER BABY [address] [place] [address] Sonia Sam MD Maternal Medicine Discharge Disposition: Home or Self Care 08/18/2024 Travel 08/16/2024 1:06 PM CDT - 08/16/2024 11:59 PM CDT Hospital Encounter [facility] MATERNAL/ EVALUATION UNIT [facility] [address] [place] [address] Panfilo Brock MD Discharge Disposition: Home or Self Care 08/16/2024 1:06 PM CDT - 08/16/2024 11:59 PM CDT Hospital Encounter [facility] MATERNAL/ EVALUATION UNIT [facility] [address] [place] [address] Sukhjinder Daniels MD ANALOG DEVICE DESIGNER Discharge Disposition: Home or Self Care 08/16/2024 12:40 PM CDT - 08/16/2024 1:05 PM CDT Hospital Encounter [facility] MATERNAL/ EVALUATION UNIT [facility] [address] [place] [address] Sukhjinder Daniels MD Discharge Disposition: Home or Self Care 08/16/2024 12:30 PM CDT - 08/16/2024 12:39 PM CDT Hospital Encounter [facility] MATERNAL/ EVALUATION UNIT [facility] [address] [place] [address] Panfilo Brock MD Discharge Disposition: Home or Self Care 08/16/2024 Travel from Last 3 Months Immunizations Immunization Administration Dates Next Due CodeNgo primary monoval ent 12+ yr 0.3mL Purple cap 12/10/2020,10/31/2020 DTAP/HEP B/IPV 09/05/2005,03/31/2005 DTAP/IPV 11/27/2009 DTaP VACCINE IM (6wk-6yrs) 10/23/2010,10/17/2005 HEP A PEDS 2 DOSE 10/14/2017,10/23/2016 HEP B VACCINE 10/17/2005 HEP B VACCINE, PED/ADOL 2004 HIB VACCINE 09/05/2005,03/31/2005 Human Papilloma Virus Nineva lent Vaccine 10/14/2017,10/23/2016 INFLUENZA VACCINE, QUADR. (F LUZONE; FLULAVAL; FLUARIX; AFLURIA QUADRIVALENT; 6MO+), 0.5 ML (IIV4) 02/12/2022,01/07/2021,05/03/2020,01/29 MENINGOCOCCAL ACWY (MCV4P) VAC IM 10/23/2016 MENINGOCOCCAL ACWY MENVEO 02/12/2022 MMR 09/13/2024(Deferred: - mom immun e) MMR VACCINE 10/23/2010 MMR/VARICELLA 11/27/2009 Meningococcal B Recombinant 2 Dose, IM 2 PNEUMOCOCCAL PCV7 CONJ, PEDS 03/31/2005 PNEUMOCOCCAL PPV VACCINE 10/17/2005,09/05/2005 POLIO,HISTORIC VACCINE 10/17/2005 TDAP (7yrs+) 09/13/2024(),08/02/2024 TDAP, HISTORIC VACCINE 10/23/2016 VARICELLA 10/23/2010 Family History Medical History Relation Name Comments Cancer - Ovarian Mother Relation Name Status Comments Mother Social History Tobacco Use Types Packs/Day Years Used Date Smoking Tobacco: Never Smokeless Tobacco: Never Tobacco Cessation:Counseling Given: No Alcohol Use Standard Drinks/Week Comments Not Currently 0 (1 standard drink = 0.6 oz pur e alcohol) AUDIT-C Answer Date Recorded Q1: How often do you have a drink containing alcohol? Never 09/20/2024 Q2: How many drinks containi ng alcohol do you have on a typical day when you are drinking? Patient does not drink Q3: How often do you have si x or more drinks on one occasion? Never 09/20/2024 Overall Financial Resource Strain (CARDIA) Answe r Date Recorded How hard is it for you to pa y for the very basics like food, housing, medical care, and heating? Not hard at all 09/20/2024 [facility] - Occupational Stress Questionnaire Answer Date Recorded Do you feel stress - tense, restless, nervous, or anxious, or unable to sleep at night because your mind is troubled all the time - these days? Not at all 09/20/2024 Hunger Vital Sign Answer Date Recorded Within the past 12 months, y ou worried that your food would run out before you got the money to buy more. Never true 09/21/19 25 Within the past 12 months, t he food you bought just didn't last and you didn't have money to get more. Never true 09/20/2024 PRAPARE - Transportation Answer Date Re corded In the past 12 months, has l ack of transportation kept you from medical appointments or from getting medications? No 08/31 In the past 12 months, has l ack of transportation kept you from meetings, work, or from getting things needed for daily living? No 09/20/2024 [place] Depression Scale Answer Date Recorded [place] Depression Scale Total 0 09/21/2024 The thought of harming myself has occurred to me . Never 09/21/2024 Housing Stability Vital Sign Answer Greg e Recorded In the last 12 months, was t here a time when you were not able to pay the mortgage or rent on time? No 09/20/2024 In the past 12 months, how m any times have you moved where you were living? 0 09/20/2024 At any time in the past 12 m [facility], were you homeless or living in a correction (including now)? 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 Gender Identity Not on file Sexual Orientation Not on file Last Filed Vital Signs Vital Sign Reading Time Taken Comments Blood Pressure 112/79 09/21/2024 12:31 PM CDT Pulse 102 09/21/2024 12:31 PM CDT Temperature 37 C (98.6 F) 09/14/2024 9:30 AM CDT Respiratory Rate 18 09/14/2024 9:30 AM CDT Oxygen Saturation 99% 09/14/2024 9:30 AM CDT Inhaled Oxygen Concentration - - Weight 48.1 kg (106 lb) 09/21/2024 12:31 PM CDT Height 154.9 cm (5' 1) 09/11/2024 5:55 PM CDT Body Mass Index 20.03 09/11/2024 5:55 PM CDT Plan of Treatment Health Maintenance Due Date Last Done Comments MENINGOCOCCAL (Group B) VACCINE SHARED DECISION-MAKING (2 of 2 - Bexsero SCDM 2-dose series) 08/13/2022 02/12/2022 COVID-19 VACCINE (3 - season) 2024 12/10/2020, 10/31/2020 INFLUENZA VACCINE (#1) 2024 , 01/07/2021, 05/03/2020, Additional history exists CHLAMYDIA/GONORRHEA SCREENING 08/18/2025 08/18/2024, 07/05/2024, 02/19/2021, Additional history exists DTAP/TDAP/TD VACCINES (8 - Td or Tdap) 08/02/2034 08/02/2024, 10/23/2016, 10/23/2010, Additional history exists ZOSTER VACCINE (1 of 2) 2054 HIB VACCINE Aged Out 09/05/2005, 03/31/2005 No lo nger eligible based on patient's age to complete this topic HEPATITIS B VACCINE Completed 10/17/2005, 09/05/2005, 03/31/2005, Additional history exists PNEUMOCOCCAL VACCINE Aged Out 10/17/2005, 09/05/2005, 03/31/2005 No longer eligible based on patient's age to complete this topic HPV VACCINE Completed 10/14/2017, 10/23/2016 MENINGOCOCCAL GROUPS A/C/Y/W VACCINE Completed 02/12/2022, 10/23/2016 HEPATITIS C SCREENING Completed 07/05/2024 HIV SCREENING Completed 08/02/2024 Procedures Procedure Name Priority Date/Time Associated Diagnosis Comments CBC W/O DIFFERENTIAL AM Draw 09/13/2024 3:50 AM CDT CBC W AUTO DIFFERENTIAL STAT 09/12/2024 4:08 PM CDT BLOOD GASES CORD HIMA (ISTAT) Routine 09/12/2024 11:43 AM CDT PATHOLOGY TISSUE EXAM (STL) Routine 09/12/2024 11:43 AM CDT Monochorionic diamniotic twin gestation in third trimester (HCC) ISTAT CG4+ ART Routine 09/12/2024 11:39 AM CDT BLOOD GASES CORD HIMA (ISTAT) Routine 09/12/2024 11:35 AM CDT BLOOD GASES CORD ART (ISTAT) Routine 09/12/2024 11:30 AM CDT NEURAXIAL BLOCK Routine 09/12/2024 11:09 AM CDT SECTION (PRIMARY) 09/12/2024 10:44 AM CDT Monochorionic diamniotic twin gestation in third trimester (HCC) SYPHILIS ANTIBODY CASCADING REFLEX STAT 09/12/2024 10:20 AM CDT TYPE + SCREEN PANEL Routine 09/11/2024 8 :41 AM CDT CBC W AUTO DIFFERENTIAL Routine 09/11/2024 8:41 AM CDT SONOGRAM - LIMITED Routine 09/07/2024 8: 15 AM CDT TYPE + SCREEN PANEL STAT 09/05/2024 6 :29 AM CDT CBC W AUTO DIFFERENTIAL STAT 09/05/2024 6:29 AM CDT Uterine contractions (HCC) URINALYSIS REFLEX MICROSCOPIC REFLEX CULTURE Routine 09/05/2024 3:46 AM CDT Uterine contractions (HCC) CULTURE URINE Routine 09/05/2024 3:46 AM CDT Uterine contractions (HCC) SONOGRAM - COMPLETE Routine 08/30/2024 1 :09 PM CDT Cystic fibrosis carrier Short stature: height 4'9 CORRECTION: abnormality in (HCC) Monochorionic diamniotic twin gestation in second trimester (HCC) 33 weeks gestation of (HCC) SONOGRAM - COMPLETE Routine 08/23/2024 2 :43 PM CDT abnormality affecting management of mother, single or unspecified fetus (HCC) IMAGING/RADIOLOGY/XRA Y RESULTS ORDER 08/22/2024 4:26 PM CDT URINALYSIS REFLEX MICROSCOPIC REFLEX CULTURE STAT 08/18/2024 1:08 PM CDT NONSTRESS TEST Routine 08/18/2024 6:54 AM CDT GLUCOSE - POINT OF CARE Routine 08/18/2024 6:00 AM CDT BLOOD TYPE VERIFICATION Routine 08/18/2024 5:53 AM CDT TYPE + SCREEN PANEL STAT 08/18/2024 5 :34 AM CDT LACTIC ACID BLOOD STAT 08/18/2024 5:3 4 AM CDT Tachycardia CULTURE STREP B STAT 08/18/2024 5:33 AM CDT Pain XR CHEST 1VW PORTABLE STAT 08/18/2024 5:27 AM CDT Tachycardia T4 FREE Routine 08/18/2024 4:39 AM CDT TSH Routine 08/18/2024 4:39 AM CDT COMPREHENSIVE METABOLIC PANEL STAT 08/18/2024 4:39 AM CDT Tachycardia CBC W AUTO DIFFERENTIAL STAT 08/18/2024 4:39 AM CDT Tachycardia URINALYSIS REFLEX MICROSCOPIC REFLEX CULTURE STAT 08/18/2024 4:23 AM CDT Pain SARS-COV-2 (COVID-19) FLU A/B RSV PCR RAPID Routine 08/18/2024 4:23 AM CDT Tachycardia TRICHOMONAS VAGINALIS YOSHI STAT 08/18/2024 4:23 AM CDT Pain CHLAMYDIA AND N. GONORRHOEAE YOSHI STAT 08/18/2024 4:23 AM CDT Pain SONOGRAM - COMPLETE Routine 08/16/2024 2 :43 PM CDT Mental disorder complicating , second trimester: Bipolar Genetic carrier: cystic fibrosis Short stature: height 4'9 Monochorionic diamniotic twin gestation in second trimester ([facility]) Tobacco use Anemia affecting , antepartum ([facility]) History of posttraumatic stress disorder (PTSD) History of bipolar disorder Encounter for ultrasound ([facility]) URINALYSIS - POCT (IP) BEAKER INTERFACE Routine 08/16/2024 1:29 PM CDT HIV-1 HIV-2 ANTIBODY + HIV P24 AG PANEL Routine 08/02/2024 2:49 PM CDT twin to twin transfusion affecting management of mother in second trimester ([facility]) HEPATITIS C ANTIBODY Routine 07/05/2024 3:20 PM CDT Monochorionic diamniotic twin gestation in second trimester ([facility]) SURGICAL CASE DISCONTINUED PREOP Poor growth affecting management of mother in third trimester, fetus 1 of multiple gestation ([facility]) from Last 3 Months or Most Recently Relevant to Health Maintenance Results * (ABNORMAL) CBC W/O DIFFERENTIAL (09/13/2024 3:50 AM CDT) WBC 13.8(H) 4.0 - 10.7 x10E9/L 09/13/2024 4:24 AM CDT [facility] RBC Count 3.35(L) 3.90 - 5.20 x10E12/L 09/13/2024 4:24 AM CDT [facility] Hemoglobin 10.1(L) 11.9 - 15.8 g/dL 09/13/2024 4:24 AM CDT [facility] Hematocrit 31.3(L) 34.8 - 46.1 % 09/13/2024 4:24 AM CDT [facility] MCV 93.4 80.0 - 98.0 fL 09/13/2024 4:24 AM CDT [facility] MCH 30.1 26.7 - 33.6 pg 09/13/2024 4:24 AM CDT [facility] MCHC 32.3 31.7 - 36.3 g/dL 09/13/2024 4:24 AM CDT [facility] RDW-CV 19.3(H) 11.3 - 14.8 % 09/13/2024 4:24 AM CDT [facility] Platelet Count 225 150 - 420 x10E9/L 09/13/2024 4:24 AM CDT [facility] MPV 9.9 7.8 - 11.4 fL 09/13/2024 4:24 AM CDT [facility] Blood BLOOD SPECIMEN / Unknown Lab Venipuncture / Unknown 09/13/2024 3:50 AM CDT 09/13/2024 4:15 AM CDT us Panfilo Brock MD LAB - HEMATOLOGY ORDERABLES Fin al Result [facility] [address] [place] [address] * (ABNORMAL) CBC W AUTO DIFFERENTIAL (09/12/2024 4:08 PM CDT) Only the most recent of4 resultswithin the time period is included. WBC 16.5(H) 4.0 - 10.7 x10E9/L 09/12/2024 4:29 PM CDT [facility] RBC Count 3.53(L) 3.90 - 5.20 x10E12/L 09/12/2024 4:29 PM CDT [facility] Hemoglobin 10.6(L) 11.9 - 15.8 g/dL 09/12/2024 4:29 PM CDT [facility] Hematocrit 32.4(L) 34.8 - 46.1 % 09/12/2024 4:29 PM CDT [facility] MCV 91.8 80.0 - 98.0 fL 09/12/2024 4:29 PM CDT [facility] MCH 30.0 26.7 - 33.6 pg 09/12/2024 4:29 PM CDT [facility] MCHC 32.7 31.7 - 36.3 g/dL 09/12/2024 4:29 PM CDT [facility] RDW-CV 19.3(H) 11.3 - 14.8 % 09/12/2024 4:29 PM CDT [facility] Platelet Count 236 150 - 420 x10E9/L 09/12/2024 4:29 PM CDT [facility] MPV 9.3 7.8 - 11.4 fL 09/12/2024 4:29 PM T [facility] Neutrophil % 77.8(H) 41.0 - 74.0 % 09/12/2024 4:29 PM CDT [facility] Lymphocyte % 13.7(L) 17.0 - 47.0 % 09/12/2024 4:29 PM CDT [facility] Monocyte % 6.7 3.0 - 11.0 % 09/12/2024 4:29 PM T [facility] Eosinophil % 0.4 0.0 - 7.0 % 09/12/2024 4:29 PM T [facility] Basophil % 0.2 0.0 - 1.6 % 09/12/2024 4:29 PM T [facility] Immature Granulocytes % 1.2(H) 0.0 - 1.0 % 09/12/2024 4:29 PM CDT [facility] Neutrophil Absolute 12.88(H) 1.60 - 7.50 x10E9/L 09/12/2024 4:29 PM [facility] Lymphocyte Absolute 2.26 1.00 - 4.40 x10E9/L 09/12/2024 4:29 PM [facility] Monocyte Absolute 1.10(H) 0.15 - 1.00 x10E9/L 09/12/2024 4:29 PM [facility] Eosinophil Absolute 0.06 0.00 - 0.60 x10E9/L 09/12/2024 4:29 PM [facility] Basophil Absolute 0.03 0.00 - 0.13 x10E9/L 09/12/2024 4:29 PM [facility] Blood BLOOD SPECIMEN / Unknown Lab Venipuncture / Unknown 09/12/2024 4:08 PM CDT 09/12/2024 4:19 PM CDT Panfilo Brock MD LAB - HEMATOLOGY ORDERABLES Fin al Result Performing Organization Address City[facility]/ZIP Co de Phone Number [facility] [address] [place] [address] * (ABNORMAL) BLOOD GASES CORD HIMA (ISTAT) (09/12/2024 11:43 AM CDT) Only the most recent of2 resultswithin the time period is included. pH Cord Venous POCT 7.32 7.28 - 7.40 pH 09/13/2024 8:53 AM CDT [facility] pCO2 Cord Venous POCT 49.6(H) 35 - 45 mm hg 09/13/2024 8:53 AM CDT [facility] pO2 Cord Venous POCT <15(L) 22 - 33 mm hg 09/13/2024 8:53 AM CDT [facility] HCO3 Cord Arterial POCT 25.2(H) 22 - 24 mmol/L 09/13/2024 8:53 AM CDT [facility] BE Cord Venous POCT Calc -2 -6.4 - 1.6 mmol/L 09/13/2024 8:53 AM CDT [facility] TCO2 Cord Venous POCT 27 22 - 30 mmol/L 09/13/2024 8:53 AM CDT [facility] O2 Saturation % Cord Venous Calc POCT 13 % 09/13/2024 8:53 AM CDT [facility] Site CORD HIMA 09/13/2024 8:53 AM CDT [facility] Sample iSTAT CORD HIMA 09/13/2024 8:53 AM CDT [facility] Blood CORD BLOOD SPECIMEN / Unknown 09/12/2024 11:43 AM CDT 09/13/2024 8:41 AM CDT Narrative [facility] - 09/13/2024 8:53 AM CDT Baby B Panfilo Brock MD LAB - POINT OF CARE ORDERABLES Edited Result - Final Performing Organization Address [facility]/ZIP Co de Phone Number [facility] [address] [place] [address] * PATHOLOGY TISSUE EXAM (STL) (09/12/2024 11:43 AM CDT) Case Report Surgical Pathology Report Case: [id number] Authorizing Provider: Adriano Oquendo MD Collected: 09/12/2024 11:43 AM Ordering Location: [facility] Received: 09/12/2024 01:05 PM Pathologist: Monisha Callahan MD Specimen: Placenta 3rd Trimester 09/13/2024 10:54 AM T [facility] Final Diagnosis Twin placenta, delivery - Fused diamnionic, monochorionic twin placentas - Small, hypermature placentas (weight <10th percentile for gestational age) - Focal placental infarct with increased perivillous fibrin deposition (placenta A, <5% of disc volume) - Scattered pigmented amnionic macrophages - Three-vessel umbilical cords (paramarginal insertion of cord B) 09/13/2024 10:54 AM T [facility] at 1054 CDT Clinical History The patient is a 18-year-old woman at 34 weeks, 2 days gestation with monochorionic, 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 Operative procedure: section. 09/13/2024 10:54 AM [facility] Gross Description The requisition and specimen container(s) are identified with the patient's name and date of . Received fresh and placed in formalin, specimen A, placenta is an ovoid twin placental disc with attached membranes and two umbilical cords. Cord with 1 clamp is designated placenta 1 (baby A, per requisition), and cord with 2 clamps is designated placenta 2 (baby B, per requisition). A pink-mendez, translucent dividing membrane is present inserting centrally dividing the placental disc. The vessels from cord 1 and involve 50% of the surface and the vessels from cord 2 to involve 50% of the surface. There are no anastomoses seen between vessels from cords 1 and 2. Cord 1 inserts eccentrically 2.5 cm from the placental disc edge, is 12.0 cm long and 1.0 cm cm diameter, and is trivascular. Cord 2 inserts eccentrically 1.0 cm cm from placental disc edge, is 15.5 cm long and 1.2 cm diameter and is trivascular. The peripheral membranes insert marginally and are pink-mendez, and semitranslucent. The surface is blue-purple with arborizing peripheral vasculature. The maternal surface is intact with red-purple, coalescing cotyledons. The placental disc is 521.1 g, 24.5 x 17.5 x 2.0 cm with red-purple, spongy cut surfaces. There is a single mendez-white firm lesion, 2.0 x 1.5 x 1.0 cm and placenta one adjacent to dividing membrane. Quality Improvement Consultant sections submitted as follows: A1- umbilical cord 1 and membrane roll, A2-A3- placenta 1 , A4- umbilical cord 2 and membrane roll, A5-A6- placenta 2, A7- dividing membrane, A8-placenta one with firm lesion IKD 09/13/2024 10:54 AM [facility] Microscopic Description Microscopic examination substantiates the above diagnosis. 09/13/2024 10:54 AM [facility] Pathologist Location at [facility] 09/13/2024 10:54 AM T [facility] Disclaimer All histochemical and/or immunohistochemical results are interpreted with controls that demonstrate appropriate staining reactions before reporting results. Note on use of immunocytochemistry reagents: This test was developed and its performance characteristic determined by [facility], Department of Laboratory Medicine. It has not been cleared or approved by the U.S. Food and Drug Administration (FDA). The FDA has determined that such clearance or approval is not necessary. The test is used for clinical purpose. It should not be regarded as investigational or for research. This laboratory is certified to perform high complexity testing. The performance characteristics of the IHC/FREDI assays have been validated on formalin-fixed paraffin embedded tissues only. The assays have not been validated on decalcified tissues. Results should be interpreted with caution. 09/13/2024 10:54 AM T [facility] Embedded Images 09/13/2024 10:54 AM T [facility] Pathology/Cytolo gy ENTIRE PLACENTA / Unknown 09/12/2024 11:43 AM CDT 09/12/2024 1:05 PM CDT Comment:Pre-op diagnosis: yoandy twins us Adriano Oquendo MD LAB - PATHOLOGY/CYTOLOGY ORDER AGUS Final Result [facility] [address] [place], [place] [id number] * (ABNORMAL) ISTAT CG4+ ART (09/12/2024 11:39 AM CDT) Lactate iSTAT Arterial POCT 2.46(H) 0.70 - 2.10 mmol/L 09/13/2024 2:20 PM CDT [facility] pH Arterial POCT 7.25(L) 7.35 - 7.45 pH 09/13/2024 2:20 PM CDT [facility] pCO2 Arterial 57.5(H) 35 - 45 mm hg 09/13/2024 2:20 PM CDT [facility] pO2 Arterial <15(LL) 80 - 100 mm hg 09/13/2024 2:20 PM CDT [facility] HCO3 Arterial POCT 25.4 22 - 26 mmol/L 09/13/2024 2:20 PM CDT [facility] BE Arterial -3(L) -2 - 2 mmol/L 09/13/2024 2:20 PM CDT [facility] TCO2 Arterial Calc POCT 27 23 - 27 mmol/L 09/13/2024 2:20 PM CDT [facility] O2 Saturation Arterial 11(LL) 90 - 100 % 09/13/2024 2:20 PM CDT [facility] Sample iSTAT ART 09/13/2024 2:20 PM CDT [facility] Site Umb Line 09/13/2024 2:20 PM CDT [facility] Blood ARTERIAL BLOOD SPECIMEN / Unknown 09/12/2024 11:39 AM CDT 09/13/2024 2:03 PM CDT Narrative [facility] - 09/13/2024 2:20 PM CDT Baby B Panfilo Brock MD LAB - POINT OF CARE ORDERABLES Edited Result - Final [facility] [address] [place], [place] [id number] * (ABNORMAL) BLOOD GASES CORD ART (ISTAT) (09/12/2024 11:30 AM CDT) pH Cord Arterial POCT 7.25 7.20 - 7.34 pH 09/12/2024 11:51 AM CDT [facility] pCO2 Cord Arterial POCT 58.0(H) 45 - 55 mm hg 09/12/2024 11:51 AM CDT [facility] pO2 Cord Arterial POCT <15 12 - 25 mm hg 09/12/2024 11:51 AM CDT [facility] HCO3 Cord Arterial POCT 25.6(H) 22 - 24 mmol/L 09/12/2024 11:51 AM CDT [facility] BE Cord Arterial POCT -3(L) -2.9 - 8.3 mmol/L 09/12/2024 11:51 AM CDT [facility] TCO2 Cord Arterial POCT 27 mmol/L 09/12/2024 11:51 AM CDT [facility] O2 Saturation Cord Art % Calc POCT 11 % 09/12/2024 11:51 AM CDT [facility] Site CORD ART 09/12/2024 11:51 AM CDT [facility] Sample iSTAT CORD ART 09/12/2024 11:51 AM CDT [facility] Blood CORD BLOOD SPECIMEN / Unknown 09/12/2024 11:30 AM CDT 09/12/2024 11:51 AM CDT Panfilo Brock MD LAB - POINT OF CARE ORDERABLES Final Result [facility] [address] [place] [address] * Neuraxial Block (09/12/2024 11:09 AM CDT) Narrative Iván Renee MD - 09/12/2024 11:09 AM CDT Iván Renee MD 09/12/2024 11:12 AM Neuraxial Block Note Pre-Procedure: Procedure Name: Neuraxial Block Patient Location: OB Indications: surgical anesthesia Pre-Anesthetic Checklist: Patient identified, IV Checked, Risks and benefits discussed, Surgical consent verified, Monitors and equipment, Site examined, Pre-op evaluation done, Time-out performed, Informed consent obtained, Questions answered/anesthesia questions answered and Allergies reviewed Anticoagulation/ Anti-thrombosis status confirmed? Yes Supplemental O2: room air Monitors: BP, continuous pluse ox, EKG and End tidal CO2 Patient Condition: awake Patient Sedated? No Procedure: Block Type: Spinal Prep: Betadine Sterile Field: mask, cap/hat, sterile established and sterile gloves Approach: midline Skin was localized? Yes Skin localized with: lidocaine (XYLOCAINE MPF) 1 % injection - Infiltration 3 mL - 09/12/2024 10:57:00 AM Spinal Block: Needle Type: spinal needle Needle Gauge: 25 Needle Length: 90 mm Placement Site: L4-5 Number of Attempts: 1 CSF: free flow, aspiration before injection, aspiration after injection Local anesthetics used? Yes Spinal local anesthetics/Additives: bupivacaine 0.75 % in dextrose (SENSORCAINE) injection - Intraspinal 11.25 mg - 09/12/2024 11:11:00 AM Degree of difficulty: none Procedure Tolerance: tolerated well Sensory Level: T6 Motor Blockade: Yes Position post procedure: head of bed elevated 30 degrees, supine, left uterine displacement Vital Signs: Vital signs monitored and stable throughout. See anesthesia record for details. Start Time: 09/12/2024 10:57 AM End Time: 09/12/2024 11:02 AM Total Time: 5 Staff: Anesthesia Provider: Iván Renee MD - performed the procedure Iván Renee MD GENERAL ANESTHESIA [facility] Final Result * SYPHILIS ANTIBODY CASCADING REFLEX (09/12/2024 10:20 AM CDT) Treponema pallidum Antibody Non Reactive Non Reactive 09/12/2024 11:08 AM CDT [facility] Comment: No Laboratory evidence of syphilis infection. Note: Circulating antibodies may be low or undetectable in early infection. If recent exposure is suspected, re-draw sample in 2-4 weeks and repeat testing. Blood BLOOD SPECIMEN / Unknown Lab Venipuncture / Unknown 09/12/2024 10:20 AM CDT 09/12/2024 10:38 AM CDT us Panfilo Brock MD LAB - SEROLOGY ORDERABLES Final Result [facility] [address] [place] [id number] * TYPE + SCREEN PANEL (09/11/2024 8:41 AM CDT) Only the most recent of3 resultswithin the time period is included. ABO Rh O POS 09/11/2024 9:20 AM CDT [facility] Comment:History checked. Antibody Screen NEG 9:20 AM CDT [facility] Blood Bank BLOOD SPECIMEN / Unknown Lab Venipuncture / Unknown 09/11/2024 8:41 AM CDT 09/11/2024 8:45 AM CDT us Panfilo Brock MD LAB - BLOOD BANK ORDERABLES Fin al Result [facility] [address] [place] [address], [facility] [phone] * Sonogram - Limited (09/07/2024 8:15 AM CDT) Linked Results Indication ======== Twin , monochorionic/ade mniotic In patient threaten PTL (09/05/24) MC/DA Twins S/P Laser Ablation for Stage 2 TTTS at [facility] 05/27/24 Incomplete Anatomy Screen x 2 Suspected SGA x 2 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 Weight 55 kg, 122 lb. Initial weight 45 kg, 100 lb. BMI 27.35 kg/m . Initial BMI 22.42 kg/m . Weight gain 10 kg, 22 lb Method ====== Transabdominal ultrasound examination. View: Sufficient ========= Twin . Number of fetuses: 2. Monochorionic-ade mniotic Dating ====== Date Details Gest. age ZAFAR Stated ZAFAR 33 w + 4 d 10/22/2024 Previous U/S 04/11/2024 GA, GA 12 w + 2 d 33 w + 4 d 10/22/2024 Assigned dating based on ultrasound (GA), selected on 06/06/2024 33 w + 4 d 10/22/2024 Fetus A: General Evaluation Cardiac activity present. FHR 169 bpm. Presentation: cephalic left Placenta: Placental site: anterior Fetus B: General Evaluation Cardiac activity present. FHR 157 bpm. Presentation: cephalic right, presenting Placenta: Placental site: anterior Fetus A: Amniotic Fluid Assessment ==== Amount of AF: normal MVP 3.1 cm Fetus B: Amniotic Fluid Assessment ==== Amount of AF: normal MVP 4.3 cm Fetus A: Biophysical Profile 2: breathing movements 2: Gross body movements 2: tone 2: Amniotic fluid volume 8/8 Biophysical profile score Fetus B: Biophysical Profile 2: breathing movements 2: Gross body movements 2: tone 2: Amniotic fluid volume 8/8 Biophysical profile score Fetus A: Growth Overview Exam date GA BPD (mm) HC (mm) AC (mm) FL (mm) HL (mm) EFW (g) 05/11/2024 16w 4d 36.9 80% 128.8 37% 101.2 35% 19.8 20% 145 17% 05/24/2024 18w 3d 43.7 82% 157.9 55% 121.5 27% 25.3 18% 28 76% 214 17% 06/06/2024 20w 2d 47.5 53% 169.7 14% 148.4 38% 30.5 16% 29.5 29% 314 21% 06/20/2024 22w 2d 47.3 1% 186.3 3% 162.5 15% 34.6 6% 398 5% 07/05/2024 24w 3d 60.5 50% 222.1 24% 192.5 27% 41.4 12% 39.1 23% 633 18% 07/18/2024 26w 2d 60.1 3% 226.5 1% 206.5 14% 46.2 13% 41.9 14% 779 8% 08/02/2024 28w 3d 66.6 4% 252.8 4% 228.5 12% 49.7 4% 45.2 7% 1022 6% 08/16/2024 30w 3d 70 1% 268.5 3% 247.5 10% 52.5 1% 47.9 5% 1254 4% 08/30/2024 32w 3d 71.3 <1% 282.7 2% 262.5 5% 57.6 2% 51.9 7% 1536 3% Fetus B: Growth Overview Exam date GA BPD (mm) HC (mm) AC (mm) FL (mm) HL (mm) EFW (g) 05/11/2024 16w 4d 33.7 41% 125.5 25% 98.1 27% 19.9 21% 140 12% 05/24/2024 18w 3d 39.4 30% 144.1 10% 118.5 20% 24.3 11% 24.9 28% 197 7% 06/06/2024 20w 2d 44.6 19% 168.6 12% 147.9 36% 30 12% 30.6 46% 306 17% 06/20/2024 22w 2d 51.4 21% 187.6 4% 155.8 6% 35 8% 33.3 16% 387 4% 07/05/2024 24w 3d 55.9 6% 220.5 19% 188.5 18% 41.3 11% 38.7 19% 606 12% 07/18/2024 26w 2d 64.2 29% 239.9 18% 193.1 2% 44.8 5% 40.6 5% 713 3% 08/02/2024 28w 3d 77.7 98% 274.9 68% 223.3 6% 49.7 4% 44.3 3% 1058 9% 08/16/2024 30w 3d 76.8 50% 274.5 9% 242.7 5% 53.9 3% 47.4 3% 1291 5% 08/30/2024 32w 3d 81.4 51% 289.6 7% 252.4 <1% 56.2 <1% 49.9 1% 1482 2% Fetus A: Anatomy The following structures appear normal: Abdomen Stomach. Kidneys. Bladder. sex: male. Fetus B: Anatomy The following structures appear normal: Abdomen Stomach. Kidneys. Bladder. sex: male. Fetus A: Doppler Umbilical Artery: normal PI 0.85 45% Cookie S / D 2.40 37% Cookie Mid Cerebral Artery: abnormal PI 1.48 3% Ebbing PS 42.14 cm/s PS 0.88 MoM CPR PI 1.74 8% Ebbing Fetus B: Doppler Umbilical Artery: normal PI 0.66 8% Cookie S / D 1.97 11% Cookie Mid Cerebral Artery: abnormal PI 1.46 3% Ebbing PS 40.84 cm/s PS 0.85 MoM CPR PI 2.21 37% Ebbing Impression ========= Inpatient due to labor with history of mono chorionic diamniotic twin gestation status post laser surgery in the 2nd trimester due to stage II T TTS at [facility] April 2024. Monochorionic-ade mniotic, live, intrauterine at 33w 4d The amniotic fluid is normal for twin A and normal for twin B. The biophysical profile is reassuring 8/8 for twin A, reassuring 8/8 for twin B. The umbilical artery Doppler is normal for twin A and normal for twin B. The MCA Doppler is abnormal for twin A and abnormal for twin B. Both with cephalization. No major malformations were seen within the limitations of ultrasound. The anatomical survey was previously completed. No evidence of TTTS/TAPS Comment ======== The patient was inpatient at the time of the study ultrasound alone cannot detect all structural, genetic, or functional , placental, or maternal abnormalities Follow-up ======== Management as per inpatient service. Thank you for allowing us to partake in your patient's care. Coding ====== Procedures 41340: US Uterus Limited 39227: Umbilical Doppler. x2 26850: MCA Doppler. x2 41474: Biophysical Profile W/O NST [employer] PACS Anatomical Region Laterality Modality Other 09/07/2024 8:15 AM CDT Panfilo Brock MD [facility] ORDERABLES Edited Result - Final * (ABNORMAL) URINALYSIS REFLEX MICROSCOPIC REFLEX CULTURE (09/05/2024 3:46 AM CDT) Only the most recent of3 resultswithin the time period is included. Color UA Yellow Yellow, Straw 09/05/2024 4:14 AM CDT [facility] Clarity UA Turbid(A) Clear 09/05/2024 4:14 AM CDT [facility] Glucose UA Normal Normal 09/05/2024 4:14 AM CDT [facility] Bilirubin UA Negative Negative 09/05/2024 4:14 AM CDT [facility] Ketone UA Negative Negative 09/05/2024 4:14 AM CDT [facility] Specific [place] UA 1.020 1.005 - 1.030 09/05/2024 4:14 AM CDT [facility] Blood UA Negative Negative 09/05/2024 4:14 AM CDT [facility] pH UA 7.0 5.0 - 8.0 09/05/2024 4:14 AM CDT [facility] Protein UA Trace(A) Negative 09/05/2024 4:14 AM CDT [facility] Urobilinogen UA 2.0(A) Normal mg/dL 09/05/2024 4:14 AM CDT [facility] Nitrite UA Negative Negative 09/05/2024 4:14 AM CDT [facility] Leukocyte Esterase UA 500 THERESA/uL(A) Negative 09/05/2024 4:14 AM CDT [facility] RBC UA 3-5 0 - 5 # /hpf 09/05/2024 4:14 AM CDT [facility] WBC UA 21-50(A) 0 - 5 # /hpf 09/05/2024 4:14 AM CDT [facility] Bacteria UA Trace(A) None Seen 09/05/2024 4:14 AM CDT [facility] Squamous Epithelial Cells 11-20(A) 0 - 5 /hpf 09/05/2024 4:14 AM CDT [facility] Mucus UA 3+ /LPF 09/05/2024 4:14 AM CDT [facility] Reflex Status Culture to follow 09/05/2024 4:14 AM CDT [facility] Urine URINE SPECIMEN OBTAINED BY CLEAN CATCH PROCEDURE / Unknown Collection / Unknown 09/05/2024 3:46 AM CDT 09/05/2024 3:58 AM CDT Narrative [facility] - 09/05/2024 4:14 AM CDT Panfilo Brock MD LAB - URINALYSIS ORDERABLES Fin al Result Performing Organization Address City/[facility]/ZIP Co de Phone Number [facility] [id number] [place] [address] * CULTURE URINE (09/05/2024 3:46 AM CDT) Culture Urine No growth (<100 CFU/mL) MAY 09/06/2024 3:07 PM CDT [facility] Urine URINE SPECIMEN OBTAINED BY CLEAN CATCH PROCEDURE / Unknown Collection / Unknown 09/05/2024 3:46 AM CDT 09/05/2024 3:58 AM CDT Panfilo Brock MD LAB - MICROBIOLOGY ORDERABLES F inal Result [facility] [address] [place] [address], [facility] [phone] * Sonogram - Complete (08/30/2024 1:09 PM CDT) Only the most recent of3 resultswithin the time period is included. 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 Weight 55 kg, 122 lb. Initial weight 45 kg, 100 lb. BMI 27.35 kg/m . Initial BMI 22.42 kg/m . Weight gain 10 kg, 22 lb Method ====== View: Poor view. Suboptimal view: limited by position ========= Twin . Number of fetuses: 2. Monochorionic-ade mniotic Dating ====== Date Details Gest. age ZAFAR Stated ZAFAR 32 w + 3 d 10/22/2024 Previous U/S 04/11/2024 GA, GA 12 w + 2 d 32 w + 3 d 10/22/2024 Assigned dating based on ultrasound (GA), selected on 06/06/2024 32 w + 3 d 10/22/2024 Fetus A: General Evaluation Cardiac activity present. FHR 148 bpm. Presentation: cephalic left Placenta: Placental site: anterior Fetus B: General Evaluation Cardiac activity present. FHR 147 bpm. Presentation: cephalic right, presenting Placenta: Placental site: anterior Fetus A: Amniotic Fluid Assessment ==== Amount of AF: normal MVP 5.1 cm Fetus B: Amniotic Fluid Assessment ==== Amount of AF: normal MVP 5.5 cm Fetus A: Biophysical Profile 2: breathing movements 2: Gross body movements 2: tone 2: Amniotic fluid volume NST: reactive 10/10 Biophysical profile score Fetus B: Biophysical Profile 2: breathing movements 2: Gross body movements 2: tone 2: Amniotic fluid volume NST: reactive 10/10 Biophysical profile score Fetus A: Non Stress Test NST interpretation: reactive Fetus B: Non Stress Test NST interpretation: reactive Fetus A: Biometry BPD 71.3 mm 28w 4d <1% Hadlock HC 282.7 mm 31w 0d 2% Hadlock AC 262.5 mm 30w 3d 5% Hadlock Femur 57.6 mm 30w 1d 2% Hadlock Humerus 51.9 mm 30w 2d 7% Emily HC / AC 1.08 Weight Calculation: EFW 1,536 g 3% Hadlock EFW (lb,oz) 3 lb 6 oz EFW by Hadlock ([id number]) EFW discordance 3.5 % SGA Fetus B: Biometry BPD 81.4 mm 32w 5d 51% Hadlock HC 289.6 mm 31w 6d 7% Hadlock AC 252.4 mm 29w 3d <1% Hadlock Femur 56.2 mm 29w 4d <1% Hadlock Humerus 49.9 mm 29w 2d 1% Emily HC / AC 1.15 Weight Calculation: EFW 1,482 g 2% Hadlock EFW (lb,oz) 3 lb 4 oz EFW by Hadlock ([id number]) EFW discordance 3.5 % less than expected Fetus A: Growth Overview Exam date GA BPD (mm) HC (mm) AC (mm) FL (mm) HL (mm) EFW (g) 05/11/2024 16w 4d 36.9 80% 128.8 37% 101.2 35% 19.8 20% 145 17% 05/24/2024 18w 3d 43.7 82% 157.9 55% 121.5 27% 25.3 18% 28 76% 214 17% 06/06/2024 20w 2d 47.5 53% 169.7 14% 148.4 38% 30.5 16% 29.5 29% 314 21% 06/20/2024 22w 2d 47.3 1% 186.3 3% 162.5 15% 34.6 6% 398 5% 07/05/2024 24w 3d 60.5 50% 222.1 24% 192.5 27% 41.4 12% 39.1 23% 633 18% 07/18/2024 26w 2d 60.1 3% 226.5 1% 206.5 14% 46.2 13% 41.9 14% 779 8% 08/02/2024 28w 3d 66.6 4% 252.8 4% 228.5 12% 49.7 4% 45.2 7% 1022 6% 08/16/2024 30w 3d 70 1% 268.5 3% 247.5 10% 52.5 1% 47.9 5% 1254 4% 08/30/2024 32w 3d 71.3 <1% 282.7 2% 262.5 5% 57.6 2% 51.9 7% 1536 3% Fetus B: Growth Overview Exam date GA BPD (mm) HC (mm) AC (mm) FL (mm) HL (mm) EFW (g) 05/11/2024 16w 4d 33.7 41% 125.5 25% 98.1 27% 19.9 21% 140 12% 05/24/2024 18w 3d 39.4 30% 144.1 10% 118.5 20% 24.3 11% 24.9 28% 197 7% 06/06/2024 20w 2d 44.6 19% 168.6 12% 147.9 36% 30 12% 30.6 46% 306 17% 06/20/2024 22w 2d 51.4 21% 187.6 4% 155.8 6% 35 8% 33.3 16% 387 4% 07/05/2024 24w 3d 55.9 6% 220.5 19% 188.5 18% 41.3 11% 38.7 19% 606 12% 07/18/2024 26w 2d 64.2 29% 239.9 18% 193.1 2% 44.8 5% 40.6 5% 713 3% 08/02/2024 28w 3d 77.7 98% 274.9 68% 223.3 6% 49.7 4% 44.3 3% 1058 9% 08/16/2024 30w 3d 76.8 50% 274.5 9% 242.7 5% 53.9 3% 47.4 3% 1291 5% 08/30/2024 32w 3d 81.4 51% 289.6 7% 252.4 <1% 56.2 <1% 49.9 1% 1482 2% Fetus A: Anatomy The following structures appear normal: Abdomen Stomach. Kidneys. Bladder. sex: male. Fetus B: Anatomy The following structures appear normal: Abdomen Stomach. Kidneys. Bladder. sex: male. Fetus A: Doppler Umbilical Artery: abnormal PI 1.45 >99% Cookie S / D 4.65 >99% Cookie Mid Cerebral Artery: normal PI 1.99 34% Ebbing PS 54.21 cm/s PS 1.20 MoM CPR PI 1.37 1% Ebbing Fetus B: Doppler Umbilical Artery: normal PI 0.93 57% Cookie S / D 2.71 54% Cookie Mid Cerebral Artery: normal PI 1.92 26% Ebbing PS 36.82 cm/s PS 0.81 MoM CPR PI 2.06 25% Ebbing Impression ========= Monochorionic-ade mniotic, live, intrauterine at 32w3d Both sizes are SGA sizes are concordant The amniotic fluid is normal for twin A and normal for twin B The biophysical profile is 10/10 for twin A and 10/10 for twin B Doppler studies: -The umbilical artery Doppler is abnormal for twin A and normal for twin B -The MCA Doppler is normal for twin A and normal for twin B bladder seen x 2 No signs of TTTS No major malformations were seen within the limitations of ultrasound for either twin Follow-up ======== Continue weekly BPPs with Doppler studies Reassess sizes in 2 weeks Coding ====== Procedures 64033: US Preg Uterus Follow Up. x2 37874: Biophysical Profile W NST. x2 40157: Umbilical Doppler. x2 53870: MCA Doppler. x2 M [place] PACS Anatomical Region Laterality Modality Other 08/30/2024 1:09 PM CDT Magno Verma MD [facility] ORDERABLES Edited Result - Final * IMAGING/RADIOLOGY/XRAY RESULTS ORDER (08/22/2024 4:26 PM CDT) Anatomical Region Laterality Modality Other Narrative 08/22/2024 4:26 PM CDT Ordered by an unspecified provider. us Scanned Document IMAGING Final Result * NONSTRESS TEST (08/18/2024 6:54 AM CDT) Narrative Snoia Sam MD - 08/18/2024 6:54 AM CDT Sonia Sam MD 08/18/2024 11:25 AM Assessment/ Non-Stress Test Non-Stress Test Interpretation Note: Date: 08/18/2024 Time period evaluated: 335 Gestational Age: 30w5d Indication(s): threatened labor, COVID infection Twin A: Baseline: 170 bpm Variability: Moderate Accels: Present Decels: Variable, plan for continuous monitoring Contractions: Present and perceived, q 2 minutes Interpretation: Reactive, overall reassuring but tachycardia present secondary to COVID infection, see plan below Twin B: Baseline: 175 bpm Variability: Moderate Accels: Present Decels: Variable, plan for continuous monitoring Contractions: Present and perceived, q 2 minutes Interpretation: Reactive, overall reassuring but tachycardia present secondary to COVID infection, see plan below Plan: plan for continued fluids and treatment of maternal infection, continuous monitoring Brissa Olivier MD us Sonia Sam MD [facility] ORDERABLES Final Res ult * GLUCOSE - POINT OF CARE (08/18/2024 6:00 AM CDT) Pathologist [facility] Glucose WB/POC 80 70 - 99 mg/dL 08/18/2024 6:17 AM CDT [facility] Specimen Type Arterial/C apillary 08/18/2024 6:17 AM CDT [facility] Blood BLOOD SPECIMEN / Unknown 08/18/2024 6:00 AM CDT 08/18/2024 6:17 AM CDT us Sonia Sam MD LAB - POINT OF CARE ORDERABL ES Final Result Performing Organization Address [facility]/ZIP Co de Phone Number [facility] [address] [place] [address] * BLOOD TYPE VERIFICATION (08/18/2024 5:53 AM CDT) ABO Rh O POS 08/18/2024 6:1 8 AM CDT [facility] Blood Bank BLOOD SPECIMEN / Unknown Venipuncture / Unknown 08/18/2024 5:53 AM CDT 08/18/2024 6:04 AM CDT us Sonia Sam MD LAB - BLOOD BANK ORDERABLES Final Result Performing Organization Address [facility] Co de Phone Number [facility] [address] [place] [address] * LACTIC ACID BLOOD (08/18/2024 5:34 AM CDT) Lactic Acid 1.517 <=2 mmol/L 08/18/2024 6:16 AM CDT [facility] Blood BLOOD SPECIMEN / Unknown Venipuncture / Unknown 08/18/2024 5:34 AM CDT 08/18/2024 5:43 AM CDT us Sonia Sam MD LAB - CHEMISTRY ORDERABLES F inal Result Performing Organization Address City/[facility]/ZIP Co de Phone Number [facility] [address] [place] [address] * CULTURE STREP B (08/18/2024 5:33 AM CDT) Culture Strep B Negative for beta-hemolytic Streptococcus Group B MAY 08/22/2024 6:54 AM CDT [facility] MICRO[facility] Microbiology MISCELLANEOUS SAMPLES / Unknown Collection / Unknown 08/18/2024 5:33 AM CDT 08/18/2024 5:43 AM CDT us Sonia Sam MD LAB - MICROBIOLOGY ORDERABLE S Final Result [facility] MI[facility] [address] [place], [place] [address], [facility] [phone] * XR Chest 1Vw Portable (08/18/2024 5:27 AM CDT) Anatomical Region Laterality Modality Chest Radiographic Fariha ging 08/18/2024 8:00 AM CDT Narrative 08/18/2024 8:09 AM CDT PROCEDURE: XR CHEST 1VW PORTABLE DATE/TIME OF EXAM: 08/18/2024 5:28 AM INDICATION: R00.0: Tachycardia. Additional History: FINDINGS/IMPRESSION: No focal consolidation or pleural effusion is seen. The heart appears normal in size. Mediastinal contours appear normal. No pneumothorax is seen. Edited by Sondra Mccord on 08/18/2024 8:01 AM > Interpreting Provider: Jeremy Clarke MD on 08/18/2024 8:09 AM Procedure Note Jeremy Clarke MD - 08/18/2024 PROCEDURE: XR CHEST 1VW PORTABLE DATE/TIME OF EXAM: 08/18/2024 5:28 AM INDICATION: R00.0: Tachycardia. Additional History: FINDINGS/IMPRESSION: No focal consolidation or pleural effusion is seen. The heart appears normal in size. Mediastinal contours appear normal. No pneumothorax is seen. Edited by Sondra Mccord on 08/18/2024 8:01 AM > Interpreting Provider: Jeremy Clarke MD on 08/18/2024 8:09 AM us Sonia Sam MD DIAGNOSTIC IMAGING ORDERABLE S Final Result * (ABNORMAL) COMPREHENSIVE METABOLIC PANEL (08/18/2024 4:39 AM CDT) Glucose 79 70 - 99 mg/dL 08/18/2024 5:24 AM CDT [facility] Sodium 134(L) 136 - 145 mmol/L 08/18/2024 5:24 AM CDT [facility] Potassium 3.8 3.5 - 5.1 mmol/L 08/18/2024 5:24 AM CDT [facility] Chloride 106 98 - 107 mmol/L 08/18/2024 5:24 AM CDT [facility] CO2 20(L) 22 - 29 mmol/L 08/18/2024 5:24 AM CDT [facility] Calcium 8.5 8.4 - 10.4 mg/dL 08/18/2024 5:24 AM CDT [facility] Anion Gap 8 6 - 16 mmol/L 08/18/2024 5:24 AM CDT [facility] BUN 5(L) 5.3 - 18.7 mg/dL 08/18/2024 5:24 AM T [facility] Creatinine 0.65 0.57 - 1.11 mg/dL 08/18/2024 5:24 AM [facility] Alkaline Phosphatase 402(H) 40 - 150 U/L 08/18/2024 5:24 AM CDT [facility] ALT 11 6 - 57 U/L 08/18/2024 5:24 AM CDT [facility] AST 33 10 - 48 U/L 08/18/2024 5:24 AM [facility] Protein Total 6.8 6.4 - 8.3 gm/dL 08/18/2024 5:24 AM [facility] Albumin 3.0(L) 3.1 - 4.5 gm/dL 08/18/2024 5:24 AM [facility] Bilirubin Total 0.8 0.2 - 1.2 mg/dL 08/18/2024 5:24 AM [facility] eGFR by CKD-EPI >90 >=90 mL/min/1.7 3 m2 08/18/2024 5:24 AM [facility] Blood BLOOD SPECIMEN / Unknown Venipuncture / Unknown 08/18/2024 4:39 AM CDT 08/18/2024 4:50 AM T us Sonia Sam MD LAB - CHEMISTRY ORDERABLES F inal Result [facility] [address] [place] [address] * TSH (08/18/2024 4:39 AM CDT) [facility] TSH 0.5613 0.35 - 4.94 uIU/mL 08/18/2024 6:36 AM CDT [facility] Blood BLOOD SPECIMEN / Unknown Venipuncture / Unknown 08/18/2024 4:39 AM CDT 08/18/2024 4:50 AM CDT Sonia Sam MD LAB - CHEMISTRY ORDERABLES F inal Result Performing Organization Address City/[facility]/ZIP Co de Phone Number [facility] [address] [place] [address] [phone] * T4 FREE (08/18/2024 4:39 AM CDT) [facility] T4 Free 0.96 0.70 - 1.50 ng/dL 08/18/2024 6:36 AM CDT [facility] Blood BLOOD SPECIMEN / Unknown Venipuncture / Unknown 08/18/2024 4:39 AM CDT 08/18/2024 4:50 AM CDT Sonia Sam MD LAB - CHEMISTRY ORDERABLES F inal Result Performing Organization Address [facility] Co de Phone Number [facility] [address] [place] [phone] * (ABNORMAL) SARS-COV-2 (COVID-19) FLU A/B RSV PCR RAPID (08/18/2024 4:23 AM CDT) [facility] COVID-19 PCR Detected(A) Not detected 5:42 AM CDT [facility] Influenza A PCR Not detected Not detected 08/18/2024 5:42 AM CDT [facility] Influenza B PCR Not detected Not detected 08/18/2024 5:42 AM CDT [facility] RSV PCR Not detected Not detected 08/18/2024 5:42 AM CDT [facility] Microbiology SPECIMEN FROM NASOPHARYNGEAL STRUCTURE / Unknown Collection / Unknown 08/18/2024 4:23 AM CDT 08/18/2024 4:57 AM CDT Narrative [facility] - 08/18/2024 5:42 AM CDT This nucleic acid amplification assay has been authorized by the Food and Drug administration (FDA) under an Emergency Use Authorization (EUA). This test is only authorized for the duration of time the declaration that circumstances exist justifying the authorization of emergency use of in vitro diagnostic tests for detection of SARS-CoV-2 virus and/or diagnosis of COVID-19 infection under section 564(b)(1) of the Act, 21 U.S.C 360bbb-3 (b)(1), unless the authorization is terminated or revoked sooner. Fact Sheets for this EUA assay are available upon request. us Sonia Sam MD LAB - MICROBIOLOGY ORDERABLE S Final Result Performing Organization Address [facility]/ZIP Co de Phone Number [facility] [address] [place] [address] * TRICHOMONAS VAGINALIS YOSHI (08/18/2024 4:23 AM CDT) Trichomonas by YOSHI NEGATIVE NEGATIVE 08/18/2024 11:09 PM CDT [facility] Microbiology ENTIRE VAGINA / Unknown Collection / Unknown 08/18/2024 4:23 AM CDT 08/18/2024 4:37 AM CDT Narrative [facility] - 08/18/2024 11:09 PM CDT This test performed by Qualitative real-time Polymerase Chain Reaction (PCR). us Sonia Sam MD LAB - MICROBIOLOGY ORDERABLE S Final Result [facility] [address] [place] [address], [facility] [phone] * CHLAMYDIA AND N. GONORRHOEAE YOSHI (08/18/2024 4:23 AM CDT) Chlamydia by YOSHI NEGATIVE NEGATIVE 08/18/2024 11:09 PM CDT [facility] Neisseria gonorrhoeae YOSHI NEGATIVE NEGATIVE 08/18/2024 11:09 PM CDT [facility] Microbiology ENTIRE VAGINA / Unknown Collection / Unknown 08/18/2024 4:23 AM CDT 08/18/2024 4:37 AM CDT Narrative [facility] - 08/18/2024 11:09 PM CDT This test performed by Qualitative real-time Polymerase Chain Reaction (PCR). us Sonia Sam MD LAB - MICROBIOLOGY ORDERABLE S Final Result [facility] [address] [place] [address], [facility] [phone] * (ABNORMAL) URINALYSIS - POCT (IP) BEAKER INTERFACE (08/16/2024 1:29 PM CDT) Color UA POCT Yellow Straw, Yellow, Dark Yellow, Light Yellow 08/16/2024 1:31 PM CDT [facility] Clarity UA POCT Clear Clear 1:31 PM CDT [facility] Specific [place] UA POCT 1.015 1.005 - 1.030 08/16/2024 1:31 PM CDT [facility] pH UA POCT 7.0 5.0 - 8.0 pH 08/16/2024 1:31 PM CDT [facility] Protein UA POCT Negative Negative 1:31 PM CDT [facility] Blood UA POCT Negative Negative 08/16/2024 1:31 PM CDT [facility] Leukocyte UA POCT Trace(A) Negative 08/16/2024 1:31 PM CDT [facility] Nitrite UA POCT Negative Negative 1:31 PM CDT [facility] Glucose UA POCT Negative Negative 1:31 PM CDT [facility] Ketone UA POCT Negative Negative 08/16/2024 1:31 PM CDT [facility] Bilirubin UA POCT Negative Negative 08/16/2024 1:31 PM CDT [facility] Urobilinogen UA POCT 0.2 0.1 - 1.0 EU/dL 08/16/2024 1:31 PM CDT [facility] Urine URINE / Unknown 08/16/2024 1 :29 PM CDT 08/16/2024 1:31 PM CDT Sukhjinder Daniels MD LAB - POINT OF CARE OR DERABLES Final Result [facility] [address] [place], [place] [id number] * HIV-1 HIV-2 ANTIBODY + HIV P24 AG PANEL (08/02/2024 2:49 PM CDT) [facility] HIV1/2 Ab + P24 Ag Non Reactive Non Reactive 08/02/2024 3:42 PM CDT [facility] Blood BLOOD SPECIMEN / Unknown Venipuncture / Unknown 08/02/2024 2:49 PM CDT 08/02/2024 2:56 PM CDT Narrative [facility] - 08/02/2024 3:42 PM CDT No Laboratory evidence of HIV infection. Lashae Betancourt MD LAB - CHEMISTRY ORDERAB LES Final Result Performing Organization Address [facility] Co de Phone Number [facility] [address] [place] [phone] * HEPATITIS C ANTIBODY (07/05/2024 3:20 PM CDT) [facility] HCV Antibody Screen Non Reactive Non Reactive 07/05/2024 5:02 PM CDT [facility] Blood BLOOD SPECIMEN / Unknown Venipuncture / Unknown 07/05/2024 3:20 PM CDT 07/05/2024 3:57 PM CDT Narrative [facility] - 07/05/2024 5:02 PM CDT Non Reactive - Antibodies to Hepatitis C virus (HCV) were not detected, result does not exclude early acute HCV infection. Lashae Betancourt MD LAB - CHEMISTRY ORDERAB LES Final Result Performing Organization Address City/[facility] Co de Phone Number [facility] [address] [place] [phone] from Last 3 Months or Most Recently Relevant to Health Maintenance Insurance [facility] MEDICAID [place] [id number] Advance Directives * Full Code (Latest Code Status on File) Date Activated Date Inactivated Comments 09/12/2024 1:14 PM 09/14/2024 1:59 PM * Full Code Date Activated Date Inactivated Comments 09/05/2024 6:27 AM 09/12/2024 1:14 PM * Full Code Date Activated Date Inactivated Comments 08/18/2024 5:15 AM 08/19/2024 12:44 PM Care Teams Dough Sheeter Relationship Specialty Start Date End Date Idalia Wesley APRN-CNP [address] [place] [phone] PCP - General 11/13/10
--- OUTSIDE RECORDS SUMMARY | 2024-11-13 02:53 | XMS_ITS | Clinical Summary ---
Author Organization [facility] Address [address] [place] [address] Care Team Providers Care Licensed Weigher Name Role Phone Xavier Gerber MD Primary Care Provider [phone] Allergies No known active allergies Medications No known medications Active Problems Problem Noted Date Diagnosed Date Twin to twin transfusion, antepartum 05/27/2024 Family history of ovarian cancer 05/26/2024 Overview (05/26/2024): She reports her mother of OvCa in [...] Anemia during in second trimester 05/01 Overview (06/23/2024): She reports she had a low iron at the [facility] office and then was told she was mildly anemic by her primary OB and is on daily iron. Hgb pre-operatively was 9.8. Monochorionic diamniotic twin in secon d trimester 05/25/2024 Bipolar disease during 05/25/2024 Overview (05/26/2024): Current regimen: no meds, previously on lexapro [...] meds in . 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 He unfortunately does not have insurance. CFTR mutation testing is pending from her amniocentesis. Short stature 05/25/2024 Twin to twin transfusion in second trimester Overview (06/23/2024): History: Diagnosed with mo-di twins at outside facility. Referred for concern for stage II TTTS on 05/24 with polyhydramnios of A, borderline MICHAEL of B, no bladder of B, normal Dopplers Ultrasound findings 05/26 at [facility]: stage 2 TTTS with fluids of 9.5 [...] suggestive of placental, constitutional, or genetic. Her DEAF INTERPRETER is still pending from amniocentesis and I will call her with these results. She should continue at least weekly US for Dopplers (UA, DV, and MCA) and testing should be initiated per institutional protocol/shared decision making on FGR and risk of early delivery. She is transferring all her care to the [facility] team moving forward and she has an US scheduled Thursday with them. I spoke with Dr. Mcmahon about this recommendation. The patient is in agreement with this plan. Delivery is recommend by 36w at the latest. Amblyopia of right eye 01/07/2021 Estimated Date of Delivery Comme nts Yes 10/23/2024 Based on Ultraso und Resolved Problems Problem Noted Date Diagnosed Date Resolved Date Twin to twin transfusion, antepartum 05/26/2024 05/26/2024 Encounters Date Type Department Care Team Description 10/23/2024 7:30 AM CDT Hospital Encounter [address] [id number] Gladis Hooper MD from Last 3 Months Immunizations Immunization Administration Dates Next Due Influenza, Quadrivalent, Spl it, Preservative Free, Intramuscular 01/07/2021 Medical History Medical History Date Comments Bipolar disorder Family History Medical History Relation Name Comments [...] on file 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 [employer] Gender Identity Not on file Sexual Orientation Not on file Obstetrics History Para Term AB IAB SAB Ectopic Multiple Livin g Live Births 1 Date Outcome GA Total Labor Labor/2nd/3rd Weight Sex Type Anes PTL Evette A1 A5 Name Clin Current Summary Episode Dates Number of Fetuses Estimated Date of Delivery 05/24/2024 - Present (11/13/2024) 10/23/2024 (set by Darius Brock MD on 05/26/2024 based on Ultrasound on 04/12/2024) Dating Summary Based On ZAFAR GA Diff Last Menstrual Period on 01/28/2024 11/03/2024 -1w4d Ultrasound on 04/12/2024 10/23/2024 Working GA:12w2d Vitals Date GA Fund Present FHR Mvmt BP Weight Edema Alb Glu Ket Dil/ Eff/Sta 5 18w4d Inpatient data not displayed here. See encounter summary. 5 18w6d Inpatient data not displayed here. See encounter summary. 5 19w4d Inpatient data not displayed here. See encounter summary. 5 22w4d Inpatient data not displayed here. See encounter summary. Notes Progress Notes - Documentati on - 06/29/2024 - GA:23w3d 06/29/2024 - w3d - Marilyn Mac, JASON Extracted DNA (twin 1) was sent to [facility] today for CF testing. PG will start with test 990 for targeted analysis for CFTR B353hly variant. If positive, they will proceed with test 3035 (CFTR full gene). Extracted maternal DNA was also sent for SNF/positive control. Progress Notes - Procedure v isit - 06/28/2024 - GA:23w2d 06/28/2024 - w2d - Bernie Mckeon RN Genetics blood draw completed Progress Notes - Office Visi t - 06/23/2024 - GA:22w4d 06/23/2024 - - Gladis Hooper MD MFM Return Visit 06/23/2024 Kelly Mensah is a 18 y.o. at 22w4d who is here for a return [facility] visit. Her is complicated by MCDA w/p laser for TTTS who presents for re- evaluation given concern for oligohydramnios for the prior recipient fetus. Subjective: She reports no concerns since surgery. No LOF/VB/contractions. Feeling some FM. Objective: BP 102/68 (BP Location: Right arm, Patient Position: Sitting) LMP 01/28/2024 General: NAD Abdomen: Soft, gravid, NT, incision c/d/i Extremities: WWP, no edema Ultrasound: MCDA IUP at 22+4 s/p laser photocoagulation for stage II TTTS on 05/27/24 Twin 1 1. Vertex presentation, low 2. There is normal fluid and a normal bladder is seen. The membrane does drape along this fetus but multiple small pockets of amniotic fluid are seen including one measuring 2.4 x 2.2 cm. 3. MCA Dopplers measure within normal limits. UA Dopplers measure within normal limits, with forward flow in all waveforms. DV Dopplers normal 4. The interval growth has been appropriate. The EFW plots at the 15%ile Twin 2 1. Transverse, high 2. The bladder and fluid are normal. 3. MCA Dopplers measure within normal limits. UA Dopplers measure within normal limits, with forward flow in all waveforms. DV Dopplers normal 4. The interval growth has been appropriate. However, the EFW plots at the 8%ile. The AC is normal. The intertwin discordance is only 5.1%. This does not meet criteria for sFGR but this fetus is growth restricted. Continue at least weekly US with [facility] for Dopplers and TTTS checks. This was discussed with Dr. Daniels. Assessment/Plan: Kelly Mensah is a 18 y.o. at 22w4d with a complicated by below. Problem List Cystic fibrosis carrier Overview We discussed the inheritance pattern of cystic fibrosis and recommendation for partner testing. He unfortunately does not have insurance. CFTR mutation testing is pending from her amniocentesis. Twin to twin transfusion in second trimester - Primary Overview History: Diagnosed with mo-di twins at outside facility. Referred for concern for stage II TTTS on 05/24 with polyhydramnios of A, borderline MICHAEL of B, no bladder of B, normal Dopplers Ultrasound findings 05/26 at [facility]: stage 2 TTTS with fluids of 9.5 [...] suggestive of placental, constitutional, or genetic. Her DEAF INTERPRETER is still pending from amniocentesis and I will call her with these results. She should continue at least weekly US for Dopplers (UA, DV, and MCA) and testing should be initiated per institutional protocol/shared decision making on FGR and risk of early delivery. She is transferring all her care to the [facility] team moving forward and she has an US scheduled Thursday with them. I spoke with Dr. Mcmahon about this recommendation. The patient is in agreement with this plan. Delivery is recommend by 36w at the latest. Anemia during in second trimester Overview She reports she had a low iron at the [facility] office and then was told she was mildly anemic by her primary OB and is on daily iron. Hgb pre-operatively was 9.8. We have not scheduled any future appointments for her and recommended she continue care with the [facility] team. She is in agreement with the plan. I spent 30 minutes in consultation with this patient which includes pre-charting and documentation. This does not include time for separately billable services. Tanya Hooper MA MD Operations Administrative Assistant Division of Maternal- Medicine and Ultrasound Department of Obstetrics and Gynecology [facility] 06/23/2024 Progress Notes - Office Visi t - 06/02/2024 - GA:19w4d 06/02/2024 - 19w4d - Nina Martinez MD [facility] Return Visit 06/02/2024 Kelly Mensah is a 18 y.o. at 19w4d who is here for a postoperative visit. She underwent laser photocoagulation procedure on 05/27 for stage II TTTS. Subjective: She reports felling well, denies any vaginal bleeding, contractions, or leakage of fluid. Reports positive movement. Endorsing mild soreness at the incision site. Objective: LMP 01/28/2024 General: NAD Abdomen: Soft, gravid, NT. Incision clean/dry/intact with Exofin Extremities: WWP, no edema Ultrasound: 06/02/2024 MCDA IUP at 19+4 s/p laser photocoagulation for stage II TTTS on 05/27/24 Twin 1 1. Vertex presentation, maternal right, low 2. MVP 2.2 cm. Bladder visible. MCA Dopplers measure within normal limits. UA Dopplers measure within normal limits, with forward flow in all waveforms. DV Dopplers normal 3. The anatomic survey is completed today and within normal limits Twin 2 1. Vertex, maternal left, high 2. MVP 2.8 cm. Bladder visible. MCA Dopplers measure within normal limits. UA Dopplers measure within normal limits, with forward flow in all waveforms. DV Dopplers normal 3. The anatomic survey is completed today and within normal limits Assessment/Plan: Kelly Mensah is a 18 y.o. at 19w4d\ #TTTS s/p laser photocoagulation - Patient doing well from postoperative standpoint - Ultrasound today with resolved TTTS - Recommend continued surveillance weekly for 6 weeks from procedure, then may space out to q2 weeks - Recommendations communication to Dr. Rosales and Dr. Daniels by Dr. Hooper. Nina Martinez MD Progress Notes - Hospital En counter - 05/28/2024 - GA:18w6d 05/28/2024 - 18w6d - Nina Martinez MD [facility] Post-Op Progress Note Gestational Age: 18w6d Admission Date: 05/27/2024 Length of stay: 0 Admission Diagnosis: TTTS SUBJECTIVE No new problems. No vaginal bleeding/leakage of fluid/contractions. Voiding, tolerating regular diet, passing flatus. Denies concerns. Review of Systems Negative except as per above. OBJECTIVE Vitals: BP 103/51 Pulse 99 Temp 36.7 C (98 F) (Oral) Resp 18 LMP 01/28/2024 SpO2 97% US: See separate procedure note Physical Exam General: No acute distress. Appears stated age and cooperative. Lungs: Non-labored on room air. Abdomen: Soft, non-tender, gravid. Neurologic: Alert and oriented x4, non-focal Lab Review: Recent Results (from the past 24 hours) DEAF INTERPRETER Tracking Order Amniotic fluid Collection Time: 05/27/24 9:18 AM Result Value Ref Range DEAF INTERPRETER Tracking Order Received ASSESSMENT/PLAN Kelly Mensah is a 18 y.o. female who is POD1 following a laser procedure for TTS #Postop care -ID: Afebrile, no signs or symptoms of infection. S/p preop Ancef. Continue Ancef for 24 hours postop -Heme: EBL minimal, no signs or symptoms of anemia. Rh status: pos. -CV/Pulm: Vital signs stable. Encourage IS. -GI: Tolerating regular diet without nausea or vomiting. Continue bowel regimen. -: Voiding spontaneously. -Pain: Well controlled with PO pain meds. -Tocolysis: continue tocolysis with nifedipine. -Activity: Independent ambulation -Dispo: Anticipate discharge today Polina Randall MD Maternal- Medicine Fellow 05/27/2024 - 18w5d - Gladis Hooper MD Postop check Patient doing well postop. Some right sided pain near incision. No n/v. Able to void. No VB/LOF/contractions. Feeling small movements. US reassuring (see separate note). -24h postop Ancef and nifedipine -repeat US with fluids, Dopplers, and bladders tomorrow AM All questions answered. Tanya Hooper MA MD Operations Administrative Assistant Division of Maternal- Medicine and Ultrasound Department of Obstetrics and Gynecology [facility] 05/27/2024 05/27/2024 - 18wrosario - Bernie Pereira MD Images from the original note were not included. OB Update Dopptones obtained at bedside. Fetus A 160bpm. Fetus B 108bpm. Bernie Pereira MD Obstetrics & Gynecology, PGY-3 Progress Notes - Office Visi t - 05/26/2024 - GA:18w4d 05/26/2024 - 18w4d - Gladis Hooper MD Care Center Consult Note Reason for Consult: MCDA TIUP with TTTS Requesting Provider: Griselda Rosales Dear Dr. Rosales, We had the pleasure of seeing your patient Kelly Mensah in our office today. As you know, she is a 18 y.o. at 18w4d by 1st trimester Ultrasound here today for a consult regarding LEAH HERNÁNDEZ with evolving TTTS on US earlier this week. Her is also complicated by anemia and BPD. Today she is doing well, she reports no concerns. No VB/LOF/cramping. Feeling FM from fetus 1. She does note that her belly has increased in size this week more than expected. Mood doing well overall. Past Medical History: Diagnosis Date Bipolar disorder (HCC) No past surgical history on file. Past Gynecologic History: Prior STIs: no History of abnormal pap: N/A Last pap smear: N/A Patient's last menstrual period was 01/28/2024. Denies history of uterine anomalies or fibroids OB History Para Term AB Living 1 SAB IAB Ectopic Multiple Live Births # Outcome Date GA Lbr Alcides/2nd Weight Sex Type Anes PTL Lv 1 Current Meds: PNV Iron ASA Family History: Family History Problem Relation Age of Onset Seizures Mother Stroke Mother ADD / ADHD Brother Depression Brother Neural tube defects: No Down syndrome or other chromosomal anomalies: No Hemophilia, sickle cell, bleeding/clotting disorder: No Muscular dystrophy: No Cystic fibrosis: No Intellectual disability or Fragile X: No Fontana disease: No Other defects or genetic disorders: Biological mother of ovarian cancer in 40s No Known Allergies Social History Tobacco Use Smoking status: Unknown Smokeless tobacco: Not on file Substance and Sexual Activity Drug use: Not on file Sexual activity: Not on file Alcohol Use: Not on file Smoke cigarettes, cigars, E-cigs: No Beer, wine, or liquor: No Street drugs/marijuana: No Physical Exam Vitals LMP 01/28/2024 General: Healthy, alert, active, cooperative, and in no distress EPDS: 13, no to Q10 The rest of the exam was deferred due to the consultative nature of this visit. Ultrasound 05/26/2024: Monochorionic diamniotic twin gestation at 18w4d referred due to concern for Stage II TTTS. There are two fetuses with a thin dividing membrane with one placenta, overall consistent with the previously established monochorionic-diamniotic gestation. Twin 1 (Low/vertex) 1. The biometry is appropriate for gestational age. 2. No major structural malformations identified within the limits of ultrasound. 3. There is polyhydramnios with an MVP of 9.5 cm and the bladder appears subjectively enlarged. 4. UA, UV, MCA, and DV Dopplers are normal. Twin 2 (Left/high/transverse) 1. The biometry is appropriate for gestational age. The intertwin discordance is 6.2%. 2. There is oligohydramnios with an MVP of 1.6 cm and there is no fluid visualized within the bladder. 3. No other major structural malformations identified within the limits of ultrasound. However, the anatomic assessment is incomplete due to suboptimal imaging of the above noted structures. 4. There is a suspected velamentous cord insertion. 5. UA, UV, MCA, and DV Dopplers are normal. Transvaginal imaging demonstrates a normal cervical length and normal adnexa bilaterally. 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 Assessment: Ms. Kelly Mensah is a darryl 18 y.o. at 18w4d here today for a consult regarding: Recommendations: Problem Family History of Ovarian Cancer She reports her mother of OvCa in [...] any testing is warranted for her. Anemia During in Second Trimester She reports she had a low iron at the [facility] office and then was told she was mildly anemic by her primary OB and is on daily iron. CBC sent preoperatively. Continue iron. Bipolar Disease During (Hcc) Current regimen: no meds, previously on lexapro [...] meds in . Plan: [] Monitor mood Cystic Fibrosis Carrier We discussed the inheritance pattern of cystic fibrosis and recommendation for partner testing. He unfortunately does not have insurance. We have discussed with our genetic counselor if CFTR sequencing can be performed as we plan to do an amnio with her laser surgery Plan: [] Partner testing v CFTR mutation testing Twin to Twin Transfusion in Second Trimester History: Diagnosed with mo-di twins at outside facility. Referred for concern for stage II TTTS on 05/24 with polyhydramnios of A, borderline MICHAEL of B, no bladder of B, normal Dopplers Ultrasound findings 05/26 at [facility]: stage 2 TTTS with fluids of 9.5 and 1.6 and empty bladder of B Counseling: We discussed the embryology of twinning and how certain twins are identical = monozygotic and others are fraternal = dizygotic. We discussed that monozygotic twins can have 1-2 placentas and amniotic sacs and her twins share a placenta but each have separate sacs and this is determined based on when the embryo splits. This is monochorionic-diamnionitc. We reviewed the risks of a twin . Compared to hallman pregnancies, twin pregnancies are at increased risk of spontaneous and iatrogenic delivery, with an average gestational age of 35 weeks at delivery in the [place]. Due to this risk, higher rates of morbidity and mortality are seen in the infants of twin pregnancies. Additionally, increased rate of growth restriction, congenital anomalies, and loss are also seen. Increased maternal risks include development of gestational hypertension, preeclampsia, gestational diabetes, acute fatty liver, PUPPPS, cholestasis, and thromboembolism. Additionally, the rate of delivery is increased in twin pregnancies. We next discussed the complications associated with monochorionic twin pregnancies including Mfdf-au-Uoxj transfusion Syndrome (TTTS), Twin Anemia-Polycythemia Sequence (TAPS), and selective intrauterine growth restriction. We discussed that TTTS and TAPS are related to unequal blood and fluid sharing through vascular anastamoses on the placental surface. We reviewed the staging of each of these conditions as well. TTTS occurs in 10-15% of cases, and is marked by polyhydramnios in one twin and oligohydramnios in the other twin. Several stages exist, but cases range from mild disease to severe disease involving of one or both twins. We reviewed that TTTS is often unpredictable in onset and severity, although most cases occur prior to 26 weeks. Briefly, we discussed that treatment of worsening TTTS is laser therapy in the second trimester and delivery in the third trimester. TAPS is a chronic form of TTTS, and is seen in up to 6% of mono-di twins without any other evidence of TTTS. Charito twins are also complicated in that their anastamoses mean that demise of one twin poses risks to the other twin which include a 10-20% of cotwin demise and 20-40% of neurologic damage. In the setting of these risks, we recommend starting a baby aspirin at 12 weeks due ot the increased risk of preeclampsia which she is already taking. The rate of congenital cardiac malformations in uncomplicated mono-di twins has been as high as 5% in some studies. Thus, echocardiograms are also recommended these twins for screening. We discussed that right now she does meet the criteria for TTTS, stage 2. We discussed that intervention is warranted for >stage 2 TTTS and in general laser therapy is the preferred therapy over other options like amnioreduction, selective reduction, septostomy, or expectant management given improved outcomes. We did discussed that even with laser therapy the risk of survival of one fetus is 80- 90% and of both is only 60-70% so this is not a perfect therapy. However, the risk of of one or both is 80-90% in the setting of untreated stage 3 TTTS. Another option would be termination of the entire which is illegal in [place] but available in other states. We also discussed the option of selective reduction which she declines. We discussed the risk of PPROM (20% risk), PTL and average GA of delivery of 32w after treatment for TTTS as well and maternal risks of bleeding, infection, damage to other structures with a fetoscopy. After discussion of r/b/a, she has opted to pursue laser therapy which will be performed today. We will admit her to L&D prior to her procedure and make preparations for laser tomorrow. We discussed operative plan, risks of bleeding and infection, need for epidural or general anesthesia given her anterior placenta, and plan for 24h observation postop for nifedipine and Ancef. surveillance starting at latest at 32 weeks with delivery at 36 weeks in the absence of other morbidity is recommended assuming successful laser procedure. However she is aware that other complications may arise in like TAPS or sFGR which can change these plans. Heartbeat bears were provided. Plan: Twin to Twin Transfusion, Antepartum (Resolved) We have scheduled her to return in 1 week for postop visit and US Thank you for the opportunity to be involved in the care of your patient. Should you have any further questions or concerns, please do not hesitate to call us. I spent 65 minutes in consultation with this patient which includes pre-charting and documentation. This does not include time for separately billable services. Tanya Hooper MA MD Operations Administrative Assistant Division of Maternal- Medicine and Ultrasound Department of Obstetrics and Gynecology [facility] [place] [facility] 05/26/2024 Growth Chart Information Age Height Weight Syaxtz-wdk-[id number] th Percentile BMI Percentile Head Circum Head Circum Percentile Date 17 years 152.4 cm (5') 54.4 kg (120 lb) 71.29%* 2023 15 years 155 cm (5' 1.02) 48.2 kg (106 lb 4.2 oz) 43.33%* 2020 15 years 149.9 cm (4' 11) 47.3 kg (104 lb 4.4 oz) 56.99%* 2020 * [facility] (Girls, 2-20 Years) Last Filed Vital Signs Vital Sign Reading Time Taken Comments Blood Pressure 102/68 06/23/2024 9:09 AM CDT Pulse 99 05/28/2024 3:35 AM CDT Temperature 36.7 C (98 F) 05/28/2024 3:35 AM CDT Respiratory Rate 18 05/28/2024 3:35 AM CDT Oxygen Saturation 97% 05/28/2024 3:35 AM CDT Inhaled Oxygen Concentration - - Weight 54.4 kg (120 lb) 04/05/2023 3:59 PM [employer] Height 152.4 cm (5') 04/05/2023 3:59 PM [employer] Body Mass Index 23.44 04/05/2023 3:59 PM [employer] Body Mass Index Percentile 71.29% 04/05/2023 3:5 9 PM [employer] Growth Chart: [facility] (Girls, 2- 20 Years) Plan of Treatment Health Maintenance Due Date Last Done Comments Depression Screening 2004 Hepatitis C Screening 2004 Meningococcal B Vaccine (2 of 2 - Bexsero SCDM 2-dose series) 08/13/2022 02/12/2022 Regular Well Visit/Exam 18-64 2022 Covid-19 Vaccine (3 - season) 2024 12/10/2020, 10/31/2020 Influenza Vaccine (#1) 2024 2, 01/07/2021, 05/03/2020, Additional history exists DTaP/Tdap/Td Vaccine (8 - Td or Tdap) 08/02/2034 08/02/2024, 10/23/2016, 10/23/2010, Additional history exists Hepatitis B Screening Completed 10/17/2005 , 09/05/2005, 03/31/2005, Additional history exists Pneumococcal vaccine <65 Aged Out 006, 09/05/2005, 03/31/2005 No longer eligible based on patient's age to complete this topic Varicella Vaccines Completed 10/23/2010, 11/27/2009 HPV Vaccines Completed 10/14/2017, 10/23/2016 Meningococcal Vaccine Completed 02/12/2022, 017 Insurance [id number] [place] [address] [id number] [place] [address] * Guarantor: JONATHON LLAMAS Account Type Relation to Patient Date of Phone Billing Address Personal/Family [facility] [place] [address] Advance Directives For more information, please contact: [phone] * Full Code (Latest Code Status on File) Date Activated Date Inactivated Comments 05/27/2024 5:48 AM 05/28/2024 12:30 PM Full CPR in case of cardiopulmonary arrest Care Teams Licensed Weigher Relationship Specialty Start Date End Date Xavier Gerber MD PCP - General Pediatrics 02/18/21
== END 2024-11-13 03:04 | disposition home or self-care (01) ==
LOC: ANHED 02:51
PROVIDERS: Emergency Provider Emergency Medicine
DX: U07.1 COVID-19 (principal); F17.290 Nicotine dependence, other tobacco product, uncomplicated; F41.9 Anxiety disorder, unspecified; F32.A Depression, unspecified
CPT/HCPCS: 87637; 99283